=== PATIENT | male | born 1950 | race Caucasian/White ===

== ENCOUNTER 2019-09-23 09:18 | Inpatient (IN) | payer MEDICAID, OTHER ==
--- NOTE | 2019-09-23 10:11 | RAD REPORT ---
EXAM DESCRIPTION: RAD - Chest Single View - 09/23/2019 9:55 am CLINICAL HISTORY: CHEST PAIN COMPARISON: None TECHNIQUE: AP portable chest image was obtained 09/23/2019 9:55 am . FINDINGS: No failure or volume overload identified. No focal consolidation identifiable. A 10 mm nod ule lateral right midlung field is relatively dense and is probably a calcified granuloma. Bilateral nipple shadows seen in the lower lung mendez. Heart and vasculature are normal. No measurable pleural effusion and no pneumothorax. No acute bony abnormality seen. No acute aortic findings suspected. IMPRESSION: No failure, infiltrate or acute cardiopulmonary finding identified. The 10 millimeter nodule in the lateral right mid chest appears dense and is probably a calcified gra nuloma. This can be monitored on follow-up imaging in 6 months if patient has no known outside imagin g.
[2019-09-23] MEDS ORDERED: NA CHLORIDE 0.9% 500 ML ONE (11:21)
[2019-09-23] MEDS ORDERED: Magnesium Sulfate 2gm IVPB 2 G/50 ML BAG IV ONE (11:21)
[2019-09-23] MEDS ORDERED: AMIODARONE HCL 150 MG/3 ML INJ IV ONE (11:25)
[2019-09-23] MEDS ORDERED: D5W 100 ML IV ONE (11:25)
[2019-09-23] MEDS ORDERED: FENTANYL CITR 100 MCG/2 ML ONE (11:41)
[2019-09-23] MEDS ORDERED: MIDAZOLAM HCL 2 MG/2 ML INJ ONE (11:41)
[2019-09-23] MEDS ORDERED: ATROPINE SULF 1 MG/10 ML SYR IV ONE (11:42)
[2019-09-23] MEDS ORDERED: NA CHLORIDE 0.9% 100 ML IV ONE (11:42)
[2019-09-23] MEDS ORDERED: NITROGLYCERIN 0.4 MG/TAB SL ONE (11:45)
--- NOTE | 2019-09-23 11:57 | EDPHYS ---
Physician Documentation [facility] Name: Mushtaq Alba Age: 68 yrs Sex: Male : 1950 Arrival Date: 09/23/2019 Time: 09:23 Bed 4 Private MD: ED Physician Allan Angel HPI: 09/22 09:24 This 68 yrs old Male presents to ER via Unassigned with complaints of Chest ps1 Pain. 09:24 The patient or guardian reports chest pain that is located primarily in the anterior ps1 chest wall, left. Onset: yesterday. The pain does not radiate. Associated signs and symptoms: The patient has no apparent associated signs or symptoms. The chest pain is described as a pressure. Modifying factors: The symptoms are alleviated by ASA, 325mg. Engaged in heavy lifting yesterday. Dr. Remberto finnegan, no recent stress or RHC. History of 1 stent in heart and one in leg. . Historical: - Allergies: : No Known Allergies; hb - Home Meds: : Nitrostat SL [Active]; hb - PMHx: : CAD; hb - PSHx: :27 Heart stents; hb - Immunization history:: Adult Immunizations up to date. - Social history:: Smoking status: Patient denies any tobacco usage or history of. ROS: 09:25 Constitutional: Negative for fever, chills, and weight loss, Eyes: Negative for injury, ps1 pain, redness, and discharge, Respiratory: Negative for shortness of breath, cough, wheezing, and pleuritic chest pain, Abdomen/GI: Negative for abdominal pain, nausea, vomiting, diarrhea, and constipation, MS/Extremity: Negative for injury and deformity, Skin: Negative for injury, rash, and discoloration, Neuro: Negative for headache, weakness, numbness, tingling, and seizure. 09:25 Cardiovascular: Positive for chest pain. Exam: 09:25 Constitutional: This is a well developed, well nourished patient who is awake, alert, ps1 and in no acute distress. Head/Face: Normocephalic, atraumatic. Chest/axilla: Normal chest wall appearance and motion. Nontender with no deformity. No lesions are appreciated. Cardiovascular: Regular rate and rhythm. No gallops, murmurs, or rubs. Normal PMI, no JVD. No pulse deficits. Respiratory: Lungs have equal breath sounds bilaterally, clear to auscultation and percussion. No rales, rhonchi or wheezes noted. No increased work of breathing, no retractions or nasal flaring. Abdomen/GI: Soft, non-tender, with normal bowel sounds. No distension or tympany. No guarding or rebound. No evidence of tenderness throughout. MS/ Extremity: Pulses equal, no cyanosis. Neurovascular intact. Full, normal range of motion. Neuro: Awake and alert, GCS 15, oriented to person, place, time, and situation. Cranial nerves II-XII grossly intact. Sensory grossly intact. Vital Signs: 09:23 BP 106 / 72; Pulse 59; Resp 18; Temp 98.1; Pulse Ox 99% on R/A; Weight 63.96 kg; Height hb 5 ft. 7 in. (170.18 cm); Pain 0/10; 10:29 BP 124 / 65; Pulse 58; Resp 14; Pulse Ox 95% ; bp 11:00 BP 84 / 64; Pulse 74; Resp 18; Pulse Ox 88% ; bp 11:45 BP 126 / 70; Pulse 64; Resp 21; Pulse Ox 92% ; bp 09:23 Body Mass Index 22.08 (63.96 kg, 170.18 cm) hb MDM: 09:27 Patient medically screened. ps1 11:38 ED course: Notified that patient was having chest pain. His blood pressure dropped and ps1 then had ST elevations noticed on monitor. He then had Non sustained v tach with changes cw wellens in V2 V3. ST elevations in inferolateral leads. Gave amiodarone / mag and called interventional cardiology ( Ms. Aquino spoke with them while I was managing patient in room) [employer] conservation laborer activated. Repeat EKG demonstrated ST elevations in inferolateral leads. . 11:57 Differential diagnosis: abnormal EKG, acute myocardial infarction, pericarditis, ps1 unstable angina. Data reviewed: vital signs, nurses notes, and as a result, I will admit patient. Counseling: I had a detailed discussion with the patient and/or guardian regarding: the historical points, exam findings, and any diagnostic results supporting the discharge/admit diagnosis, the need for further work-up and treatment in the hospital. 09/22 09:24 Order name: CBC with Diff ps1 09/22 09:24 Order name: Magnesium ps1 09/22 09:24 Order name: NT PRO-BNP ps1 09/22 09:24 Order name: Troponin (emerg Dept Use Only) ps1 09/22 09:24 Order name: XRAY Chest (1 view); Complete Time: 10:59 ps1 09/22 09:24 Order name: CMP ps1 09/22 09:24 Order name: EKG; Complete Time: 09:25 ps1 09/22 09:24 Order name: Cardiac monitoring; Complete Time: 09:32 ps1 09/22 09:24 Order name: EKG - Nurse/Tech; Complete Time: 09:32 ps1 09/22 09:24 Order name: IV Saline Lock; Complete Time: 10:08 ps1 09/22 09:24 Order name: Labs collected and sent; Complete Time: 10:08 ps1 09/22 09:24 Order name: O2 Per Protocol; Complete Time: 09:32 ps1 09/22 09:24 Order name: O2 Sat Monitoring; Complete Time: 09:32 ps1 EC:37 Rate is 55 beats/min. Rhythm is regular. QRS [place] is Normal. IA interval is normal. QRS ps1 interval is normal. QT interval is normal. No Q waves. T waves are Normal. No ST changes noted. Clinical impression: Sinus bradycardia. Interpreted by me. Administered Medications: 08:53 Drug: amiodarone 900 mg, D5W 500 ml Route: IVPB; Rate: 1 mg/min; Site: left hand; hb 11:00 Drug: NS 0.9% 500 ml Route: IV; Rate: 1 bolus; Site: left wrist; bp 11:21 Drug: amiodarone 150 mg Volume: 100 ml; Route: IVPB; Infused Over: 10 mins; Site: left iw hand; 11:50 Not Given (Hemodynamic Parameters): Nitroglycerin 0.4 mg Sublingual once; every five bp minute if needed x3 Disposition: 09/23/19 11:56 Hospitalization ordered by Mitchell Osborne for Inpatient Admission. Preliminary diagnosis are Other chest pain, Abnormal electrocardiogram [ECG] [EKG], STEMI. - Bed requested for Ibm Bpm Architect. - Status is Inpatient Admission. bp - Condition is Serious. - Problem is new. - Symptoms have improved. Signatures: Dispatcher [employer] Erika Alfred FNP-C TEAM LEAD-Csnw Tamela Lindsey RN RN iw Zo Goodman, RN RN hb Abad Reyes, RN BABATUNDE bp Allan Angel MD MD ps1 Corrections: (The following items were deleted from the chart) 11:44 09:24 Engaged in heavy lifting yesterday. Dr. Remberto finnegan, no recent stress or RHC. . ps1 ps1 11:47 11:38 ED course: Notified that patient was having chest pain. His blood pressure ps1 dropped and then had ST elevations noticed on monitor. He then had Non sustained v tach with changes cw wellens in V2 V3. ST elevations in inferolateral leads. Gave amiodarone / mag and called interventional cardiology ( Ms. Aquino spoke with them while I was managing patient in room) [employer] conservation laborer activated. . ps1 11:56 11:56 Hospitalization Ordered by Mitchell Osborne MD for Inpatient Admission. Preliminary ps1 diagnosis is Other chest pain; Abnormal electrocardiogram [ECG] [EKG]. Bed requested for Ibm Bpm Architect. Status is Inpatient Admission. Condition is Serious. Problem is new. Symptoms have improved. ps1 12:00 11:56 09/23/2019 11:56 Hospitalization Ordered by Mitchell Osborne MD for Inpatient hb Admission. Preliminary diagnosis is Other chest pain; Abnormal electrocardiogram [ECG] [EKG]; STEMI. Bed requested for Ibm Bpm Architect. Status is Inpatient Admission. Condition is Serious. Problem is new. Symptoms have improved. ps1 12:05 12:00 09/23/2019 11:56 Hospitalization Ordered by Mitchell Osborne MD for Inpatient bp Admission. Preliminary diagnosis is Other chest pain; Abnormal electrocardiogram [ECG] [EKG]; STEMI. Bed requested for Ibm Bpm Architect. Status is Inpatient Admission. Condition is Serious. Problem is new. Symptoms have improved. hb
--- NOTE | 2019-09-23 11:57 | ER ---
Nurse's Notes [facility] Name: Mushtaq Alba Age: 68 yrs Sex: Male : 1950 Arrival Date: 09/23/2019 Time: 09:23 Bed 4 Private MD: Diagnosis: Other chest pain;Abnormal electrocardiogram [ECG] [EKG];STEMI Presentation: 09/22 09:23 Chief complaint: EMS states: Substernal chest pressure that radiated to left arm and hb mild SOB since last night. Reports working out in the heat yesterday. Pain subsided after ASA 324mg administered AIRPLANE PILOT HELPER. BP 126/65, HR 80s, SpO2 97% on RA. Hx of CAD, cardiac stents. Coronavirus screen: Proceed with normal triage. Ebola Screen: No symptoms or risks identified at this time. Initial Sepsis Screen: Does the patient meet any 2 criteria? No. Patient's initial sepsis screen is negative. Does the patient have a suspected source of infection? No. Patient's initial sepsis screen is negative. Risk Assessment: Do you want to hurt yourself or someone else? Patient reports no desire to harm self or others. Onset of symptoms was September 22, 2019. 09:23 Method Of Arrival: EMS: [facility] 09:23 Acuity: COLLEEN 3 hb Triage Assessment: :27 General: Appears in no apparent distress. Behavior is calm, cooperative. Pain: Denies hb pain. EENT: No signs and/or symptoms were reported regarding the EENT system. Neuro: Level of Consciousness is awake, alert, obeys commands, Oriented to person, place, time, situation. Cardiovascular: Capillary refill < 3 seconds Patient's skin is warm and dry. Rhythm is regular. Respiratory: Respiratory effort is even, unlabored, Respiratory pattern is regular, symmetrical. GI: No signs and/or symptoms were reported involving the gastrointestinal system. : No signs and/or symptoms were reported regarding the genitourinary system. Derm: Skin is pink, warm \T\ dry. Musculoskeletal: No signs and/or symptoms reported regarding the musculoskeletal system. Historical: - Allergies: : No Known Allergies; hb - Home Meds: : Nitrostat SL [Active]; hb - PMHx: : CAD; hb - PSHx: :27 Heart stents; hb - Immunization history:: Adult Immunizations up to date. - Social history:: Smoking status: Patient denies any tobacco usage or history of. Screenin:28 Abuse screen: Denies threats or abuse. Denies injuries from another. Nutritional hb screening: No deficits noted. Tuberculosis screening: No symptoms or risk factors identified. Fall Risk None identified. Assessment: 09:28 General: see triage. hb 10:28 Reassessment: PIV PLACED, UNABLE TO OBTAIN BLOOD SPECIMEN. PHLEBOTOMY CONTACTED FOR bp BLOOD DRAW. 10:39 Reassessment: PHLEBOTOMY AT B/S. bp 11:00 Reassessment: PT C/O ACUTE INCREASE IN CHEST PAIN. MD AT /. STEMI PATTERN NOTED ON bp EKG. 11:20 Reassessment: PROGRAM EVALUATOR ACTIVATED BY DR ÁLVAREZ. TRANSPORT PENDING FOR CARDIAC CATH. MX bp ATTEMPTS BY MD TO OBTAIN EJ ACCESS UNSUCCESSFUL. 11:45 Reassessment: PROGRAM EVALUATOR AT / FOR TRANSPORT. bp Vital Signs: 09:23 BP 106 / 72; Pulse 59; Resp 18; Temp 98.1; Pulse Ox 99% on R/A; Weight 63.96 kg; Height hb 5 ft. 7 in. (170.18 cm); Pain 0/10; 10:29 BP 124 / 65; Pulse 58; Resp 14; Pulse Ox 95% ; bp 11:00 BP 84 / 64; Pulse 74; Resp 18; Pulse Ox 88% ; bp 11:45 BP 126 / 70; Pulse 64; Resp 21; Pulse Ox 92% ; bp 09:23 Body Mass Index 22.08 (63.96 kg, 170.18 cm) hb ED Course: :23 Patient arrived in ED. hb 09:23 Allan Angel MD is Attending Physician. ps1 09:26 Triage completed. hb 09:27 Arm band placed on. hb 09:28 Patient has correct armband on for positive identification. Placed in gown. Bed in low hb position. Call light in reach. Side rails up X 1. electronic device monitor on. Pulse ox on. NIBP on. 09:28 Patient maintains SpO2 saturation greater than 95% on room air. hb 09:29 Zo Goodman, RN is Primary Nurse. hb 09:55 XRAY Chest (1 view) In Process Unspecified. EDMS 10:29 Inserted saline lock: 24 gauge in left hand, using aseptic technique. bp 11:30 Inserted saline lock: 18 gauge in right upper arm, using aseptic technique. bp 11:55 Mitchell Osborne MD is Hospitalizing Provider. ps1 Administered Medications: 08:53 Drug: amiodarone 900 mg, D5W 500 ml Route: IVPB; Rate: 1 mg/min; Site: left hand; hb 11:00 Drug: NS 0.9% 500 ml Route: IV; Rate: 1 bolus; Site: left wrist; bp 11:21 Drug: amiodarone 150 mg Volume: 100 ml; Route: IVPB; Infused Over: 10 mins; Site: left iw hand; 11:50 Not Given (Hemodynamic Parameters): Nitroglycerin 0.4 mg Sublingual once; every five bp minute if needed x3 Outcome: 11:56 Decision to Hospitalize by Provider. ps1 12:00 Patient left the ED. hb 12:05 Patient left the ED. bp Signatures: Dispatcher [employer] Tamela Sandra RN RN Zo Goodman RN RN Abad Reyes RN RN bp Allan Angel MD MD ps1
[2019-09-23] MEDS ORDERED: HEPA 1000U/500MLS 1,000 UNIT/500 ML BAG IV ONE (12:07)
[2019-09-23] MEDS ORDERED: NITROGLYCERIN/D5W 50 MG/250 ML BTL IV ONE (12:27)
[2019-09-23] MEDS ORDERED: NITROPRUSSIDE 50 MG VIAL IV ONE (12:39)
[2019-09-23] MEDS ORDERED: D5W 250 ML IV ONE (12:39)
[2019-09-23] MEDS ORDERED: CLOPIDOGREL 75 MG TABLET ONE (12:59)
[2019-09-23] MEDS ORDERED: NA CHLORIDE 0.9% 1,000 ML ONE (13:07)
[2019-09-23] MEDS ORDERED: ONDANSETRON 4 MG/2 ML VIAL ONE (13:21)
[2019-09-23] MEDS ORDERED: ACETAMINOPHEN 325 MG TABLET PO PRN (14:00)
[2019-09-23] MEDS ORDERED: ONDANSETRON 4 MG/2 ML VIAL IV PRN (14:00)
[2019-09-23] MEDS ORDERED: HEPARIN/D5W 25,000 UNIT/500 ML BAG IV PRN (15:00)
[2019-09-23 15:42] LABS: Absolute Lymphocytes (CBC) 1.9 K/uL (0.7-4.9); Basophils % 0.7 % (0-1.3); Hematocrit 39.3 % (39.6-49.0); Lymphocytes % 24.6 % (15.3-44.8); MPV 8.5 fL (7.6-11.3); RBC Red Blood Cell Count 4.21 M/uL (4.33-5.43)
[2019-09-23 16:06] LABS: Protime INR 1.18
[2019-09-23 16:07] LABS: Albumin 3.1 g/dL (3.4-5.0); Bilirubin Total 0.2 mg/dL (0.2-1.0); Magnesium 2.9 mg/dL (1.8-2.4); Potassium 4.3 mmol/L (3.5-5.1); Protein, Total 6.5 g/dL (6.4-8.2); Troponin (Emerg Dept Use Only) 0.11 ng/mL (0.0-0.045)
[2019-09-23] MEDS: NITROGLYCERIN 0.4 MG/TAB SL PRN (18:49)
[2019-09-23 18:57] LABS: Blood Morphology Comment NOT SEEN (NOT SEEN); Platelet Estimate ADEQ; Urine White Blood Cell Casts OK
[2019-09-23] MEDS ORDERED: NITROGLYCERIN/D5W 50 MG/250 ML BTL IV PRN (19:16)
[2019-09-23] MEDS: ATORVASTATIN 80 MG TAB PO SCH (21:09)
[2019-09-23] MEDS: NA CHLORIDE 0.9% 1,000 ML IV SCH (22:38)
--- NOTE | 2019-09-23 22:49 | CON ---
Date of Consultation: 09/23/2019 Patient was admitted on 09/23/2019. The patient was seen on 09/23/2019. Reason For Consultation: Acute inferior [place]. History Of Present Illness: Mr. Alba is a 68-year-old white male with history of coronary artery di sease. He is status post LAD stent at some point. Apparently, has been having chest pain for approx imately 2 to 3 years and was in the process of having a workup when he came into the emergency room w ith an acute inferior [place]. He was taken to the labor relations consultant emergently and a heart catheterization reveal ed a very distal 90% stenosis in the LAD and in that area the LAD itself was about 1 mm in size. He had a normal circumflex, but the OM was about 1 mm in size as well. The LAD stent was patent. He coronado d multiple thrombi in the RCA that was treated with IV Nipride and nitroglycerin and patient's ST corinne vation and symptoms resolved. He was given Angiomax during the procedure. He was given aspirin, Deshaun vix, and heparin as well as nitroglycerin and was transferred to the ICU in stable condition. The de cision was to treat him medically. His distal LAD is too small to stent or angioplasty. Patient's past medical history includes CAD status post stents and at home the only medication he too k was Nitrostat as needed. Allergies: NONE. Review of Systems: Negative. Social History: Positive for tobacco. Family History: Noncontributory. Physical Examination: Vital Signs: When we first saw him, his pressure was 106/72 with a pulse of 60, respiratory rate of 18, temperature 98.1, pulse ox was 99% on room air. He was having short runs of VT and amiodarone dr roy was started. HEENT: Exam was negative. Neck: Supple with no bruit. Chest: Clear to auscultation and percussion. Cardiac: Exam revealed a regular rhythm and rate. No murmurs, gallops, or rubs. Abdomen: Benign. Extremities: Revealed no clubbing, cyanosis, or edema. Diagnostic Data: EKG showed acute inferior [place]. His creatinine was 1.22. His hemoglobin was 13.0. His troponin was 0.11. His BNP was . Chest x-ray was clear. Impression And Plan: 1.Status post acute inferior myocardial infarction with multiple thrombi in the RCA region, treated with IV nitroglycerin, Nipride, aspirin, Plavix, heparin and Angiomax. 2.Severe coronary artery disease in the LAD distally and OM blood vessels are very small there for i ntervention. Patent LAD stent proximally. We will continue his regimen right now with aspirin, Plav ix. I will keep him on a heparin drip and nitroglycerin as needed. I will stop his IV amiodarone si nce his EKG went back to normal and he is pain-free. We will continue to follow him. His other prob lems that are noticed during the catheterization that he has had a right common iliac artery stent wh ich appeared to be patent. ALONSO/KAREY Voice ID: [id number] Report ID: [id number]
--- NOTE | 2019-09-23 22:52 | OP ---
Date of Procedure: 09/23/2019 Surgeon: Mitchell Osborne MD Pathology Supervisor: Michele Flanagan. Procedure: Left heart catheterization, selective coronary arteriogram, intracoronary injection with nitroglycerin and Nipride, thrombolysis with Angiomax, heparin, aspirin, and Plavix. History Of Present Illness: Mr. Alba is a 68-year-old white male with history of CAD, status post L AD stent, peripheral arterial disease status post right common iliac artery stent, came in with an ac lizeth inferior [place] to the energy systems laboratory director. The only medicine he was taking at home was nitroglycerin p.r.n. Katie bourne had an acute inferior [place], was taken straight from the emergency room to the energy systems laboratory director. Catheterizat ion was planned. He was prepped and draped in the routine sterile fashion. He was having short runs of ventricular tachycardia. He was on IV amiodarone. He was normotensive with persistent chest reese n 6/10. He was prepped and draped in routine sterile fashion. He was given Versed and fentanyl for sedation. A 6-Polish sheath was introduced in the right common femoral artery successfully after 10 mL of Xylocaine. JL4 catheter was introduced into the left main. Injection there showed a patent LA D stent, a very small distal LAD with 90% stenosis. The blood vessel distally was less than 1 mm in size. The circumflex itself was normal. The OM-1 was severely diseased, was about 1 mm in size as w ell. Following that, a JR4 catheter was used to inject the right coronary artery. He was found to h ave multiple thrombi in the RV branch, proximal RCA, and distal RCA. There were no obvious stenosis. He was given intracoronary nitroglycerin, intracoronary Nipride, Angiomax, aspirin, Plavix, and the n switched to heparin with excellent results of the RCA without any residual thrombus. His chest reese n resolved. His EKG changes resolved. The ventricular tachycardia did not reoccur. There were no c omplications. Blood Loss: 5 mL. Anesthesia: Total conscious sedation was 1 hour. Final Diagnoses: Status post acute inferior myocardial infarction secondary to thrombus. Thrombolys is with IV nitroglycerin with intracoronary Nipride, aspirin, Plavix, Angiomax, heparin. Ventricular tachycardia treated with IV amiodarone. The patient will go to the ICU on heparin drip, nitroglycerin drip, amiodarone drip. We will continu e to follow him in the ICU. NB/MODL Voice ID: [id number] Report ID: [id number]
[2019-09-24] MEDS: NITROGLYCERIN 0.4 MG/TAB SL PRN (04:00)
[2019-09-24 05:10] LABS: Absolute Lymphocytes (CBC) 1.8 K/uL (0.7-4.9); Basophils % 0.5 % (0-1.3); Hematocrit 36.6 % (39.6-49.0); Lymphocytes % 18.8 % (15.3-44.8); RBC Red Blood Cell Count 3.99 M/uL (4.33-5.43)
[2019-09-24] MEDS: NA CHLORIDE 0.9% 1,000 ML IV SCH ×3 (05:28→20:58)
[2019-09-24 05:31] LABS: Potassium 4.1 mmol/L (3.5-5.1)
[2019-09-24] MEDS ORDERED: TRAMADOL HCL 50 MG TAB PO PRN (08:04)
[2019-09-24] MEDS: HYDROCODONE/APAP 7.5/325 MG TAB PO PRN ×3 (08:23→21:01)
[2019-09-24] MEDS: CLOPIDOGREL 75 MG TABLET PO SCH (08:24)
[2019-09-24] MEDS: ASPIRIN 81 MG CHEWABLE TABLET PO SCH (08:24)
--- NOTE | 2019-09-24 08:52 | PN ---
Date of Progress Note: 09/24/2019 Mr. Alba came in yesterday with an acute inferior [place]. Heart catheterization emergently showed throm bus in the right coronary artery proximally, distally, and in the RV branch. He was treated with IV Nipride, intracoronary nitroglycerin. He was also given Plavix, aspirin, placed on heparin. He was having ventricular tachycardia and was placed on amiodarone. Overnight, he has had 1 episode of ches t pain with ST elevation that resolved with IV nitroglycerin. He has not had any further ventricular tachycardia and his amiodarone was stopped. This morning, his vital signs are stable. He is afebri le. He is in sinus rhythm. He has no complaints. He remains on heparin, nitroglycerin, aspirin Deshaun vix, Lipitor, and I would continue those regimen at least 1 more day. We will get an echocardiogram on him today. ALONSO/KAREY Voice ID: [id number] Report ID: [id number]
--- NOTE | 2019-09-24 11:07 | P.CNS ---
Date of Consult: 09/24/19 Reason for Consult: Medical management Requesting Physician: Mitchell Osborne Chief Complaint: STEMI History of Present Illness: 68-year-old gentleman with a history of coronary artery disease status post coronary stent presented to the ED with a complaint of chest pain. Patient was found to have a STEMI. He underwent cardiac catheterization and noted to have a clot in the right coronary artery. This was treated with intracoronary anticoagulants. Patient was then transferred to the intensive care unit on heparin drip and for close monitoring. It appears he also developed ventricular tachycardia which was treated with amiodarone. Patient had intermittent chest pain and was put on nitroglycerin drip. He had 1 episode of chest pain last night. This morning patient appeared to be in stable condition. Allergies No Known Allergies Allergy (Unverified 09/23/19 11:16) Home Medications: Atorvastatin Calcium [Lipitor] 80 mg PO BEDTIME 09/23/19 Clopidogrel Bisulfate [Plavix*] 1 tab PO DAILY 09/23/19 Isosorbide Mononitrate [Isosorbide Mononitrate ER] 120 mg PO DAILY 09/23/19 Metoprolol Succinate [Toprol Xl] 25 mg PO DAILY 09/23/19 Nitroglycerin [Nitrostat] 0.4 mg SL 09/23/19 Nortriptyline HCl [Pamelor] 50 mg PO BEDTIME 09/23/19 - Past Medical/Surgical History Diabetic: No -: HTN -: Blood clots -: DVT -: CAD -: Appendectomy -: spinal Sx. - Social History Alcohol use: No CD- Drugs: Yes Caffeine use: Yes Place of Residence: Home Review of Systems Other: Except as documented, all other systems reviewed and negative. Physical Examination Temp Pulse Resp BP Pulse Ox 98.1 F 80 14 138/68 98 09/23/19 15:30 09/24/19 07:00 09/24/19 08:23 09/24/19 07:00 09/24/19 08:23 General: Alert, In no apparent distress, Oriented x3 HEENT: Mucous membr. moist/pink Neck: Supple, JVD not distended Respiratory: Clear to auscultation bilaterally, Normal air movement Cardiovascular: No edema, Regular rate/rhythm, Normal S1 S2 Capillary refill: <2 Seconds Gastrointestinal: Normal bowel sounds, Soft and benign, Non-distended, No tenderness Musculoskeletal: No erythema Integumentary: No rashes Neurological: Normal speech, Normal strength at 5/5 x4 extr - Problems (1) CAD (coronary artery disease) Current Visit: Yes Status: Acute (2) STEMI (ST elevation myocardial infarction) Current Visit: Yes Status: Acute (3) Ventricular tachycardia Current Visit: Yes Status: Acute (4) Angina at rest Current Visit: Yes Status: Acute Conclusions/Impression: Continue heparin drip and monitor PTT. Nitroglycerin drip for recurrent chest pain. Patient also on amiodarone drip. Correct electrolytes. Hypercoagulable workup.
[2019-09-24] MEDS: ATORVASTATIN 80 MG TAB PO SCH (20:59)
[2019-09-25] MEDS: NA CHLORIDE 0.9% 1,000 ML IV SCH (06:02)
[2019-09-25] MEDS: CLOPIDOGREL 75 MG TABLET PO SCH (07:27)
[2019-09-25] MEDS: HYDROCODONE/APAP 7.5/325 MG TAB PO PRN ×2 (07:27→21:52)
[2019-09-25] MEDS: ASPIRIN 81 MG CHEWABLE TABLET PO SCH (07:27)
--- NOTE | 2019-09-25 08:10 | ECHO ---
HEIGHT: 5 ft 7 in WEIGHT: 139 lb 1 oz DATE OF STUDY: 09/24/[address]: Mitchell Osborne MD 2-DIMENSIONAL: YES M.MODE: YES DOPPLER: YES COLOR FLOW: YES TDS: YES PORTABLE: NO DEFINITY: NO BUBBLE STUDY: NO DIAGNOSIS: CORONARY ARTERY DISEASE CARDIAC HISTORY: CATHERIZATION: SURGERY: PROSTHETIC VALVE: PACEMAKER: MEASUREMENTS (cm) DIASTOLIC (NORMALS) SYSTOLIC (NORMALS) IVSd 1.0 (0.6-1.2) LA Diam 3.8 (1.9-4.0) LVEF 61% LVIDd 4.6 (3.5-5.7) LVIDs 3.1 (2.0-3.5) %FS 32% LVPWd 1.1 (0.6-1.2) Ao Diam 2.8 (2.0-3.7) 2 DIMENSIONAL ASSESSMENT: RIGHT ATRIUM: NORMAL LEFT ATRIUM: NORMAL RIGHT VENTRICLE: NORMAL LEFT VENTRICLE: NORMAL TRICUSPID VALVE: NORMAL MITRAL VALVE: NORMAL PULMONIC VALVE: NORMAL AORTIC VALVE: NORMAL PERICARDIAL EFFUSION: NONE AORTIC ROOT: NORMAL LEFT VENTRICULAR WALL MOTION: NORMAL DOPPLER/COLOR FLOW: NORMLA COMMENTS: NORMAL 2D ECHOCARDIOGRAM WITH DOPPLER. NO WALL MOTION ABNORMALITY. NO EFFUSION. TECHNOLOGIST: Heike CLOUD
[2019-09-25] MEDS ORDERED: MORPHINE 2 MG/ML SYR IV PRN (09:31)
[2019-09-25] MEDS: AMLODIPINE 5 MG TAB PO SCH (12:11)
--- NOTE | 2019-09-25 17:14 | P.PN ---
Subjective Date of Service: 09/25/19 Primary Care Provider: none Chief Complaint: STEMI Subjective: Improving, Doing well Physical Examination - Vital Signs Temperature: 98.5 F Blood Pressure: 85/62 Pulse: 70 Respirations: 17 Pulse Ox (%): 100 - Physical Exam General: Alert HEENT: Atraumatic Neck: Supple Respiratory: Clear to auscultation bilaterally, Normal air movement Cardiovascular: Normal pulses, Regular rate/rhythm Gastrointestinal: Normal bowel sounds, Soft and benign Neurological: Normal speech, Normal strength at 5/5 x4 extr, Normal tone, Normal affect - Studies Medications List Reviewed: Yes Assessment & Plan Discharge Plan: Home Plan to discharge in: 24 Hours Physician Review Additional Text: Impression: Chest pain secondary to post acute inferior MT secondary to thrombus with history of CAD, status post LAD stent Hypertension Peripheral vascular disease with prior right common iliac artery stent Plan: Case discussed at length with cardiology. Will continue aspirin, Plavix, Lipitor, and Norvasc. Will stop heparin drip and nitro drip. If stable can be transferred to the floor. Patient was re-evaluated later in the day. Patient stable patient will go to the floor. Possible discharge as early as tomorrow. Time Spent Managing Pts Care (In Minutes): 55
[2019-09-25] MEDS: ATORVASTATIN 80 MG TAB PO SCH (20:33)
[2019-09-25] MEDS: HEPARIN 5000 UNIT/ML 1 ML VIAL SQ SCH (20:33)
[2019-09-25] MEDS: NORTRIPTYLINE HCL 25 MG CAP PO SCH (20:33)
[2019-09-25] MEDS ORDERED: NORTRIPTYLINE HCL 50 MG PO SCH (21:00)
[2019-09-25] MEDS: NITROGLYCERIN 0.4 MG/TAB SL PRN (21:52)
[2019-09-26 06:09] LABS: Basophils % 0.6 % (0-1.3); Hematocrit 37.9 % (39.6-49.0); Lymphocytes % 32.3 % (15.3-44.8); MPV 8.2 fL (7.6-11.3); RBC Red Blood Cell Count 4.14 M/uL (4.33-5.43)
[2019-09-26 06:32] VITALS: BMI 21.2
[2019-09-26 06:43] LABS: Potassium 4.3 mmol/L (3.5-5.1)
[2019-09-26] MEDS: AMLODIPINE 5 MG TAB PO SCH (08:40)
[2019-09-26] MEDS: ASPIRIN 81 MG CHEWABLE TABLET PO SCH (08:40)
[2019-09-26] MEDS: CLOPIDOGREL 75 MG TABLET PO SCH (08:40)
[2019-09-26] MEDS: HEPARIN 5000 UNIT/ML 1 ML VIAL SQ SCH ×2 (08:41→22:19)
--- NOTE | 2019-09-26 11:17 | P.DS ---
Admission Date: 09/23/19 Discharge Date: 09/26/19 Primary Care Provider: none Disposition: ROUTINE DISCHARGE Discharge Condition: GOOD Reason for Admission: STEMI Consultations: Cardiology-Dr. Osborne Procedures: ECHO: EF 61% LEFT VENTRICULAR WALL MOTION: NORMAL DOPPLER/COLOR FLOW: NORMLA COMMENTS: NORMAL 2D ECHOCARDIOGRAM WITH DOPPLER. NO WALL MOTION ABNORMALITY. NO EFFUSION. Heart catherization: Date of Procedure: 09/23/2019 Surgeon: Mitchell Osborne MD [place]: Michele Flanagan. Procedure: Injection there showed a patent LAD stent, a very small distal LAD with 90% stenosis. The blood vessel distally was less than 1 mm in size. The circumflex itself was normal. The OM-1 was severely diseased, was about 1 mm in size as well. Following that, a JR4 catheter was used to inject the right coronary artery. He was found to have multiple thrombi in the RV branch, proximal RCA, and distal RCA. There were no obvious stenosis. He was given intracoronary nitroglycerin, intracoronary Nipride, Angiomax, aspirin, Plavix, and then switched to heparin with excellent results of the RCA without any residual thrombus. His chest pain resolved. His EKG changes resolved. The ventricular tachycardia did not reoccur. There were no complications. Blood Loss: 5 mL. Anesthesia: Total conscious sedation was 1 hour. Final Diagnoses: Status post acute inferior myocardial infarction secondary to thrombus. Thrombolysis with IV nitroglycerin with intracoronary Nipride, aspirin, Plavix, Angiomax, heparin. Ventricular tachycardia treated with IV amiodarone. The patient will go to the ICU on heparin drip, nitroglycerin drip, amiodarone drip. We will continue to follow him in the ICU. Medical Problem List: Chest pain secondary to post acute inferior TN/ventricular tachycardia status post heart catheterization showing patent LAD stent, a very small distal LAD with 90% stenosis, normal circumflex, OM1 severely diseased, and multiple thrombi in the RV branch, proximal RCA and distal RCA requiring intracoronary nitro, intracoronary nipride, Angiomax, aspirin, Plavix then heparin with good results of RCA without residual thrombus Hypertension Hyperlipidemia Peripheral vascular disease with prior right common iliac artery stent Insomnia Brief History of Present Illness: 68-year-old male with history of Coronary artery disease. Patient presented with chest pain. Patient found to have acute inferior TN. Patient was taking to the heart catheterization lab for emergent intervention. Hospital Course: Patient presented with chest pain secondary to Acute Coronary Syndrome/acute inferior TN/ventricular tachycardia. The patient was emergently seen by Cardiology and had emergent heart catheterization. Heart catheterization performed showed patent LAD stent, a very small distal LAD with 90% stenosis, normal circumflex, OM1 severely diseased, and multiple thrombi in the RV branch, proximal RCA and distal RCA requiring intracoronary nitro, intracoronary nipride, Angiomax, aspirin, Plavix then heparin with good results of RCA without residual thrombus. The patient has significantly improved. Patient was monitored in ICU. Case discussed in detail with cardiology. At discharge p atient without chest pain. At discharge patient will continue with aspirin 81 mg daily, Plavix 75 mg daily, Norvasc 5 mg daily, Lipitor 80 mg daily and nitroglycerin as needed for chest pain. At discharge patient will need a follow up with cardiology in 1 week to follow up this hospitalization. Patient also with underlying hypertension, hyperlipidemia, peripheral vascular disease with prior stent and insomnia. At discharge patient will continue with above medications along with Pamelor 50 mg at bedtime as needed. Patient will need to establish care with a local PCP to continue his care and follow up this hospitalization. Vital Signs/Physical Exam: Temp Pulse Resp BP Pulse Ox 97.8 F 84 18 129/89 96 09/26/19 08:00 09/26/19 09:00 09/26/19 09:00 09/26/19 09:00 09/26/19 08:00 General: Alert, In no apparent distress, Oriented x3, Cooperative HEENT: Atraumatic Neck: Supple Respiratory: Clear to auscultation bilaterally, Normal air movement Cardiovascular: Normal pulses, Regular rate/rhythm Gastrointestinal: Normal bowel sounds, Soft and benign, Non-distended, No masses, No rebound, No guarding Musculoskeletal: No erythema, No tenderness, No warmth Integumentary: No tenderness/swelling, No erythema, No warmth, No cyanosis Neurological: Normal speech, Normal strength at 5/5 x4 extr, Normal tone, Normal affect Laboratory Data at Discharge: WBC 6.1 K/uL (4.3-10.9) D 09/26/19 05:03 Hgb 12.8 g/dL (13.6-17.9) L 09/26/19 05:03 Hct 37.9 % (39.6-49.0) L 09/26/19 05:03 Plt Count 189 K/uL (152-406) 09/26/19 05:03 PT 13.9 SECONDS (9.5-12.5) H 09/23/19 15:04 INR 1.18 09/23/19 15:04 APTT Cancelled 09/25/19 10:00 Sodium 145 mmol/L (136-145) 09/26/19 05:03 Potassium 4.3 mmol/L (3.5-5.1) 09/26/19 05:03 BUN 13 mg/dL (7-18) 09/26/19 05:03 Creatinine 1.02 mg/dL (0.55-1.3) 09/26/19 05:03 Glucose 88 mg/dL (74-106) 09/26/19 05:03 Magnesium 2.0 mg/dL (1.8-2.4) D 09/26/19 05:03 Total Bilirubin 0.2 mg/dL (0.2-1.0) 09/23/19 15:15 AST 43 U/L (15-37) H 09/23/19 15:15 ALT 54 U/L (12-78) 09/23/19 15:15 Alkaline Phosphatase 92 U/L (45-117) 09/23/19 15:15 Triglycerides 66 mg/dL (<150) 09/24/19 04:40 Cholesterol 74 mg/dL (<200) 09/24/19 04:40 HDL Cholesterol 44 mg/dL (40-60) 09/24/19 04:40 Cholesterol/HDL Ratio 1.68 09/24/19 04:40 Home Medications: Nortriptyline HCl [Pamelor] 50 mg PO BEDTIME 09/23/19 Amlodipine [Norvasc*] 5 mg PO DAILY #30 tab 09/26/19 Aspirin Chewable [Aspirin Chewable*] 81 mg PO DAILY #90 tab.chew 09/26/19 Atorvastatin Calcium [Lipitor] 80 mg PO BEDTIME #30 tab 09/26/19 Clopidogrel Bisulfate [Plavix*] 75 mg PO DAILY #30 tablet 09/26/19 Nitroglycerin [Nitrostat*] 0.4 mg SL SEECOM #30 tab 09/26/19 New Medications: Aspirin Chewable [Aspirin Chewable*] 81 mg PO DAILY #90 tab.chew Atorvastatin Calcium [Lipitor] 80 mg PO BEDTIME #30 tab Nitroglycerin [Nitrostat*] 0.4 mg SL SEECOM #30 tab Amlodipine [Norvasc*] 5 mg PO DAILY #30 tab Clopidogrel Bisulfate [Plavix*] 75 mg PO DAILY #30 tablet Patient Discharge Instructions: 1. Recommend follow up with a PCP to establish care and follow up this hospitalization. 2. Patient presented with chest pain secondary to Acute Coronary Syndrome/acute inferior TN/ventricular tachycardia. The patient was emergently seen by Cardiology and had emergent heart catheterization. Heart catheterization performed showed patent LAD stent, a very small distal LAD with 90% stenosis, normal circumflex, OM1 severely diseased, and multiple thrombi in the RV branch, proximal RCA and distal RCA requiring intracoronary nitro, intracoronary nipride, Angiomax, aspirin, Plavix then heparin with good results of RCA without residual thrombus. The patient has significantly improved. Patient was monitored in ICU. Case discussed in detail with cardiology. At discharge patient without chest pain. At discharge patient will continue with aspirin 81 mg daily, Plavix 75 mg daily, Norvasc 5 mg daily, Lipitor 80 mg daily and nitroglycerin as needed for chest pain. At discharge patient will need a follow up with cardiology in 1 week to follow up this hospitalization. 3. Patient also with underlying hypertension, hyperlipidemia, peripheral vascular disease with prior stent and insomnia. At discharge patient will continue with above medications along with Pamelor 50 mg at bedtime as needed. 4. Patient will need to establish care with a local PCP to continue his care and follow up this hospitalization. Diet: AHA Activity: Ad albaro Time spent managing pt's care (in minutes): 55
[2019-09-26] MEDS: ATORVASTATIN 80 MG TAB PO SCH (22:18)
[2019-09-26] MEDS: NORTRIPTYLINE HCL 25 MG CAP PO SCH (22:19)
[2019-09-26] MEDS: NITROGLYCERIN 0.4 MG/TAB SL PRN (22:24)
[2019-09-27] MEDS: HYDROCODONE/APAP 7.5/325 MG TAB PO PRN (01:39)
[2019-09-27 06:06] LABS: Basophils % 0.5 % (0-1.3); Hematocrit 38.3 % (39.6-49.0); Lymphocytes % 31.3 % (15.3-44.8); MPV 8.2 fL (7.6-11.3)
[2019-09-27 06:29] LABS: Potassium 4.2 mmol/L (3.5-5.1)
[2019-09-27 09:38] VITALS: TEMP 97
[2019-09-27] MEDS: HEPARIN 5000 UNIT/ML 1 ML VIAL SQ SCH (10:22)
[2019-09-27] MEDS: CLOPIDOGREL 75 MG TABLET PO SCH (10:22)
[2019-09-27] MEDS: AMLODIPINE 5 MG TAB PO SCH (10:22)
[2019-09-27] MEDS: ASPIRIN 81 MG CHEWABLE TABLET PO SCH (10:22)
[2019-09-27 10:52] VITALS: O2SAT 96
[2019-09-27 14:10] VITALS: BP 121/62
[2019-09-28 10:17] LABS: Protein C Antigen 81 % (70-140)
--- NOTE | 2019-09-29 16:19 | PN ---
Date of Progress Note: 09/25/2019 Mr. Alba had came in with an acute anterior [place] secondary to RCA thrombus. He was treated with aspir in, Nipride, nitroglycerin, heparin, Angiomax. He remained on heparin for 48 hours. He has not had any further symptoms or EKG changes. Echocardiogram which was done was normal without any wall motio n abnormalities. I think Mr. Alba can safely go home, but he needs to be on aspirin, he needs to be on Plavix, and needs to be on a calcium channel lien. He needs to be on a statin, and I will see him in the office in the next 2 weeks. I would like to add that during his catheterization, he was found to have a patent LAD stent proximally, but very small distal LAD and very small OM. In the dis jessica LAD, which was which was about a 1 mm vessel, there was about a 90% stenosis, but not amenable fo r angioplasty or intervention. ALONSO/KAREY Voice ID: [id number] Report ID: [id number]
== END 2019-09-27 13:10 | disposition home or self-care (01) | DRG 281 ==
LOC: ER 09:18 → 3RD-ICU 13:37 → 2ND 09-26 11:14
PROVIDERS: ATTEND Family Medicine
PROC: 4A023N7 Measurement of Cardiac Sampling and Pressure, Left Heart, Percutaneous Approach (ICD-10-PCS; principal; 2019-09-23)
PROC: B201YZZ Plain Radiography of Multiple Coronary Arteries using Other Contrast (ICD-10-PCS; 2019-09-23)
PROC: B205YZZ Plain Radiography of Left Heart using Other Contrast (ICD-10-PCS; 2019-09-23)
PROC: 3E07317 Introduction of Other Thrombolytic into Coronary Artery, Percutaneous Approach (ICD-10-PCS; 2019-09-23)
DX: I21.19 ST elevation (STEMI) myocardial infarction involving other coronary artery of inferior wall (principal); I47.2 Ventricular tachycardia; I25.119 Atherosclerotic heart disease of native coronary artery with unspecified angina pectoris; I10 Essential (primary) hypertension; I73.89 Other specified peripheral vascular diseases; E78.5 Hyperlipidemia, unspecified; Z86.718 Personal history of other venous thrombosis and embolism; Z11.59 Encounter for screening for other viral diseases
CPT/HCPCS: 36415; 37244; 71045; 80048; 80053; 80061; 81241; 83090; 83735; 83880; 84484; 85025; 85300; 85301; 85302; 85305; 85306; 85347; 85610; 85730; 86147; 93005; 93306; 93454; 96374; 99285; C1725; C1893; J0282; J0583; J1644; J2250; J2270; J2405; J3010; J3475; J7030; J7040; J7060; U0002

== ENCOUNTER 2024-01-23 22:13 | Inpatient (IN) | payer OTHER ==
[2024-01-23 22:37] LABS: Absolute Basophils 0.1 K/uL (0-0.5); Absolute Eosinophils 0.2 K/uL (0-0.5); Absolute Lymphocytes (CBC) 2.3 K/uL (0.7-4.9); Absolute Monocytes 0.6 K/uL (0.1-1.3); Basophils % 0.7 % (0-1.3); Eosinophils % 2.3 % (0-4.4); Hematocrit 41.6 % (39.6-49.0); Hemoglobin 13.6 g/dL (13.6-17.9); Lymphocytes % 32.9 % (15.3-44.8); MCHC 32.6 g/dL (32.0-36.0); MCV 88.7 fL (80-100); MPV 8.5 fL (7.6-11.3); Monocytes % 8.3 % (3.3-12.3); Neutrophils % 55.8 % (41.7-73.7); Platelets 247 thou/uL (152-406); RBC Red Blood Cell Count 4.69 M/uL (4.33-5.43); Red Cell Distribution Width 16.7 % (12.1-15.2)
[2024-01-23 22:38] LABS: PT Prothrombin Time 12.2 SECONDS (9.4-12.5); Protime INR 1.09
[2024-01-23] MEDS ORDERED: METHYLPREDNISOLONE 125 MG INJ ONE (22:48)
[2024-01-23] MEDS ORDERED: ONDANSETRON 4 MG/2 ML VIAL ONE (22:48)
[2024-01-23] MEDS ORDERED: NA CHLORIDE 0.9% 2,000 ML ONE (22:49)
[2024-01-23] MEDS ORDERED: dilTIAZem HCL 25 MG/5 ML VIAL IV ONE ×2 (22:49→22:50)
[2024-01-23] MEDS ORDERED: NA CHLORIDE 0.9% 100 ML ONE (22:50)
[2024-01-23 23:12] LABS: ALT/SGPT 34 U/L (16-61); AST/SGOT 36 U/L (15-37); Albumin 3.8 g/dL (3.4-5.0); Albumin/Globulin Ratio 0.7 (1.1-1.8); Alkaline Phosphatase 117 U/L (45-117); BUN Blood Urea Nitrogen 34 mg/dL (7-18); Bicarbonate 20 mEq/L (21-32); Bilirubin Total 0.4 mg/dL (0.2-1.0); Globulin 5.3 g/dL (2.3-3.5); Glomerular Filtration Rate 24 ml/min (=/>90); Glucose Level 106 mg/dL (74-106); Magnesium 2.1 mg/dL (1.6-2.4); NT PRO-BNP 341 pg/mL (<125); Protein, Total 9.1 g/dL (6.4-8.2); Sodium Level 138 mEq/L (136-145); Troponin High Sensitivity 17.9 pg/mL (<58.9)
[2024-01-23 23:13] LABS: Bilirubin Direct < 0.2 mg/dL (0-0.2); Bilirubin Indirect, Calculated 0.2 mg/dL (0.2-0.8)
[2024-01-23 23:22] LABS: Blood Gas Oxyhemoglobin 91.1 % (94-97); Blood O2 Saturation 94.7 % (92-98.5)
[2024-01-23 23:23] LABS: Arterial Blood Carboxyhemoglob 2.1 % (0-1.5); Blood Gas THB 13.4 g/dl (12-18)
--- NOTE | 2024-01-24 01:06 | EDPHYS ---
Physician Documentation [facility] Name: Mushtaq Alba Age: 73 yrs Sex: Male : 1950 Arrival Date: 01/23/2024 Time: 22:13 Bed 2 Private MD: ED Physician Stanley Nunez HPI: 01/23 00:45 This 73 yrs old Male presents to ER via EMS with complaints of Irregular sp4 Pulse. 00:49 73-year-old male presents with acute onset of tachycardia, irregular pulse, shortness sp4 of breath, generalized weakness. . 00:55 EMS reported atrial fibrillation with RVR, patient was given adenosine 12 mg for sp4 possible SVT, which then precipitated slower rhythm that appeared to be atrial flutter.. Patient was then given diltiazem IV without significant improvement. . Historical: - Allergies: 01/22 22:30 No Known Allergies; al5 - PMHx: 22:30 CAD; Hypertensive disorder; Atrial fibrillation; al5 - PSHx: 22:30 Appendectomy; al5 - Immunization history:: Adult Immunizations up to date. - Infectious Disease History:: Denies. - Social history:: Smoking status: Patient reports the use of cigarette tobacco products, smokes one-half pack cigarettes per day, Patient uses street drugs, marijuana, Methamphetamine (Meth). - Family history:: not pertinent. ROS: 01/23 00:55 Constitutional: Negative for fever, chills, and weight loss, positive generalized sp4 weakness, positive palpitations, positive tachycardia. Positive shortness of breath. All other systems are negative, Exam: 00:55 Constitutional: This is a well developed, well nourished patient who is awake, thin sp4 appearing male, in respiratory distress. Pale appearing. Head/Face: Normocephalic, atraumatic. Eyes: Pupils equal round and reactive to light, extra-ocular motions intact. Lids and lashes normal. Conjunctiva and sclera are not injected. Cornea within normal limits. Periorbital areas with no swelling, redness, or edema. ENT: Nares patent. No nasal discharge, no septal abnormalities noted. Tympanic membranes are normal and external auditory canals are clear. Oropharynx with no redness, swelling, or masses, exudates, or evidence of obstruction, uvula midline. Mucous membranes moist. Neck: Trachea midline, no thyromegaly or masses palpated, and no cervical lymphadenopathy. Supple, full range of motion without nuchal rigidity, or vertebral point tenderness. Chest/axilla: Normal chest wall appearance and motion. Nontender with no deformity. No lesions are appreciated. Cardiovascular: Patient has a rapid irregular heart rate appears to be atrial fibrillation on the monitor. no gallops, murmurs, or rubs. Normal PMI, no JVD. No pulse deficits. Respiratory: Lungs have equal breath sounds bilaterally, positive for bilateral wheezing, positive for dyspnea and tachypnea. No retractions Abdomen/GI: Soft, with normal bowel sounds. No distension or tympany. No guarding or rebound. No evidence of tenderness throughout. Back: No spinal tenderness. No costovertebral tenderness. Male : Normal genitalia with no discharge or lesions. Skin: Warm, dry with normal turgor. Normal color with no rashes, no lesions, and no evidence of cellulitis. MS/ Extremity: Pulses equal, no cyanosis. Neurovascular intact. Full, normal range of motion. Neuro: Awake and alert, GCS 15, oriented to person, place, time, and situation. Cranial nerves II-XII grossly intact. Motor strength 5/5 in all extremities. Sensory grossly intact. Psych: Awake, alert, with orientation to person, place and time. Behavior, mood, and affect are within normal limits 00:55 ECG was reviewed by the Attending Physician. EKG at 2226 atrial fibrillation with RVR rate 146. 01:03 ECG was reviewed by the Attending Physician. EKG at 0046 conversion to normal sinus sp4 rhythm rate 97 , normal sinus rhythm rate 97. Vital Signs: 01/22 22:15 BP 119 / 73; Pulse 145; Resp 17; Pulse Ox 99% on R/A; al5 22:22 BP 92 / 61; Pulse 141; Resp 14; Temp 97.4; Pulse Ox 95% on R/A; Weight 61.23 kg; Height al5 5 ft. 8 in. ; 22:30 BP 129 / 57; Pulse 131; Resp 20; Pulse Ox 98% on R/A; al5 23:00 BP 114 / 78; Pulse 107; Resp 19; Pulse Ox 97% on R/A; al5 23:15 BP 134 / 69; Pulse 90; Resp 19; Pulse Ox 98% on R/A; al5 23:30 BP 131 / 79; Pulse 79; Resp 16; Pulse Ox 100% on R/A; al5 01/23 00:16 BP 123 / 73; Pulse 79; Resp 20; Pulse Ox 100% on R/A; al5 00:30 BP 117 / 70; Pulse 85; Resp 17; Pulse Ox 98% on R/A; al5 00:45 BP 112 / 60; Pulse 89; Resp 15; Pulse Ox 99% on R/A; al5 01:00 BP 139 / 67; Pulse 82; Resp 15; Pulse Ox 94% on R/A; al5 01:15 BP 114 / 76; Pulse 77; Resp 14; Pulse Ox 95% on R/A; al5 01:30 BP 148 / 94; Pulse 90; Resp 15; Pulse Ox 95% on R/A; al5 01:45 BP 132 / 87; Pulse 87; Resp 18; Pulse Ox 98% on R/A; al5 01/22 22:22 Body Mass Index 20.53 (61.23 kg, 172.72 cm) al5 Marlen Coma Score: 00:55 Eye Response: spontaneous(4). Motor Response: obeys commands(6). Verbal Response: sp4 oriented(5). Total: 15. MDM: 01/22 22:24 Medical Screening Exam initiated sp4 01/23 00:45 ED course: EXAM DESCRIPTION: Chest Single View CLINICAL HISTORY: 73 years Male, CHEST sp4 PAIN TECHNIQUE: 1 view (Single frontal view of the chest) COMPARISON: Prior images of chest x-ray 09/23/2019 were not made available at time of this interpretation, inference from the prior report may be made. FINDINGS: LINES AND TUBES: None. CARDIOVASCULAR STRUCTURES: Normal heart size. No pulmonary venous congestion. LUNGS: Pacer/defibrillator pad partially obscuring left hilum and retrocardiac region. No confluent areas of acute consolidation. Scattered calcified granulomata of the largest within the right midlung field measuring up to 10 mm. PLEURA: No layering pleural effusions. No pneumothorax. BONES: No acute osseous abnormality of the thorax. IMPRESSION: 1. No acute cardiopulmonary disease. 2. Old granulomatous disease. 3. Partial obscuration left hilum and retrocardiac region due to defibrillator/pacer pad.. 01:01 Differential diagnosis: acute myocardial infarction, acute pericarditis, anxiety, sp4 coronary artery disease chest wall pain, Cholelithiasis esophagitis, gastritis. HEART Score: History: Highly Suspicious (2), ECG: Non specific repolarization disturbance / LBTB / PM (1), Age: > or = 65 years (2), Risk Factors: 1 or 2 risk factors (1), Troponin: < or = 1 x Normal Limit (0), Total Score = 6. The patient was given aspirin in the Emergency Department. Data reviewed: vital signs, nurses notes, EMS record, old medical records, lab test result(s), EKG, radiologic studies, plain films. 01:03 ED course: Patient stable for admission for monitoring and further assessment.. [facility] 01/22 22:17 Order name: Basic Metabolic Panel; Complete Time: 00:43 sp4 01/22 22:17 Order name: CBC with Diff; Complete Time: 00:43 sp4 01/22 22:17 Order name: LFT's; Complete Time: 00:43 4 01/22 22:17 Order name: Magnesium; Complete Time: 00:43 sp4 01/22 22:17 Order name: NT PRO-BNP; Complete Time: 00:43 sp4 01/22 22:17 Order name: PT-INR; Complete Time: 00:43 sp4 01/22 22:17 Order name: Troponin HS; Complete Time: 00:43 sp4 01/22 22:17 Order name: Alcohol Level; Complete Time: 00:43 sp4 01/22 22:17 Order name: Urine Drug Screen [facility] 01/22 22:18 Order name: ABG; Complete Time: 00:43 4 01/22 22:18 Order name: TSH; Complete Time: 00:43 sp4 01/22 22:18 Order name: T4 Free; Complete Time: 00:43 sp4 01/23 01:10 Order name: T3 Free [facility] 01/23 01:24 Order name: Magnesium [facility] 01/23 01:24 Order name: NT PRO-BNP [facility] 01/23 01:24 Order name: Phosphorus [facility] 01/23 01:24 Order name: Urinalysis w/ reflexes [facility] 01/23 01:24 Order name: Basic Metabolic Panel [facility] 01/23 01:24 Order name: Basic Metabolic Panel [facility] 01/23 01:24 Order name: CBC with Automated Diff [facility] 01/23 01:24 Order name: CBC with Automated Diff [facility] 01/23 01:24 Order name: Lipid Profile [facility] 01/23 01:24 Order name: Lipid Profile [facility] 01/23 01:24 Order name: Troponin High Sensitivity [facility] 01/23 01:24 Order name: Troponin High Sensitivity [facility] 01/23 01:24 Order name: Troponin High Sensitivity ED[facility] 01/23 01:24 Order name: Troponin High Sensitivity [facility] 01/22 22:17 Order name: XRAY Chest (1 view) sp4 01/23 01:25 Order name: Echo with Doppler EDMS 01/23 01:24 Order name: CONS Physician Consult EDMS 01/22 22:17 Order name: Cardiac monitoring; Complete Time: 22:37 sp4 01/22 22:17 Order name: EKG - Nurse/Tech; Complete Time: 22:37 sp4 01/22 22:17 Order name: IV Saline Lock; Complete Time: 22:37 sp4 01/22 22:17 Order name: Labs collected and sent; Complete Time: 22:37 sp4 01/22 22:17 Order name: O2 Per Protocol; Complete Time: 22:37 sp4 01/22 22:17 Order name: O2 Sat Monitoring; Complete Time: 22:37 sp4 EC/06 22:26 Rate is 146 beats/min. Rhythm is irregularly irregular, A fib with Rapid ventricular sp4 response. QRS Lamont is Normal. QRS interval is normal. QT interval is normal. No Q waves. T waves are Normal. No ST changes noted. Clinical impression: Atrial Fibrillation. Interpreted by me. Reviewed by me. Administered Medications: 01/23 01:08 Discontinued: diltiazem 5 mg/hr IV at calculated rate See Administration Instructions; sp4 (standard dilution 125 mg diltiazem mixed in 125 mL NS; final concentration 1mg/mL). Recommended max rate 15 mg/hr; Titrate 5 mg/hr as often as every 15 minutes to achieve goal (see titration policy); Goal parameter HR less than 100 bpm 01/22 22:55 Drug: NS 0.9% IV 1000 ml IV at 1 bolus Per protocol; to be given as a bolus over 60 al5 minutes Route: IV; Rate: 1 bolus; Site: left upper arm; 01/23 00:52 Follow up: Response: No adverse reaction; IV Status: Completed infusion; IV Intake: al5 1000ml 01/22 22:55 Drug: Ondansetron IVP 4 mg IVP once; over 2 minutes Route: IVP; Site: left upper arm; al5 01/23 00:51 Follow up: Response: No adverse reaction; Nausea is decreased al5 01/22 22:55 Drug: Diltiazem IV 5 mg/hr IV at calculated rate See Administration Instructions; al5 (standard dilution 125 mg diltiazem mixed in 125 mL NS; final concentration 1mg/mL). Recommended max rate 15 mg/hr; Titrate 5 mg/hr as often as every 15 minutes to achieve goal (see titration policy); Goal parameter HR less than 100 bpm Route: IV; Rate: calculated rate; Site: left upper arm; 01/23 00:51 Follow up: Response: No adverse reaction; Cardiac rhythm changed al5 01/22 22:55 Drug: MethylPrednisoLONE IVP 125 mg IVP once Route: IVP; Site: left [facility] arm; al5 01/23 00:51 Follow up: Response: No adverse reaction al5 01/22 22:55 Drug: Diltiazem IVP 10 mg IVP once; Over 2 minutes Route: IVP; Site: left upper arm; al5 01/23 00:51 Follow up: Response: No adverse reaction; Cardiac rhythm changed 5 00:52 Drug: NS 0.9% IV 1000 ml IV at 125 ml/hr continuous Route: IV; Rate: 125 ml/hr; Site: [facility]; 01:58 Follow up: Response: No adverse reaction; IV Status: Infusion continued upon admission al5 02:22 Follow up: Response: No adverse reaction; IV Status: Infusion continued upon admission al5 01:58 Drug: Enoxaparin Sub-Q 60 mg Sub-Q once Route: Sub-Q; Site: right lower abdomen; al5 02:22 Follow up: Response: No adverse reaction 5 01:58 Drug: Aspirin PO Chewable Tablet 324 mg PO once; 81 mg tablets x 4 Route: PO; al5 02:22 Follow up: Response: No adverse reaction al5 Disposition: 01:06 Critical Care:. sp4 Disposition Summary: 01/24/24 01:06 Hospitalization Ordered Notes: Hospitalization Status: Inpatient Admission sp4 Provider: [place], [place] sp4 Location: Telemetry/MedSurg (Inpatient) sp4 Condition: Fair sp4 Problem: new sp4 Symptoms: have improved sp4 Bed/Room Type: Standard sp4 Room Assignment: 228(01/24/24 01:32) rv1 Diagnosis - Paroxysmal atrial fibrillation sp4 - COPD exacerbation, acute onset atrial fibrillation with RVR , methamphetamine sp4 abuse, tobacco use disorder Forms: - Medication Reconciliation Form sp4 - SBAR form sp4 - Leadership Thank You Letter sp4 Critical care time excluding procedures: 01:06 Critical care time: Bedside Care: 36 minutes, Consultation: 12 minutes, Family sp4 Intervention: 12 minutes. Total time: 60 minutes Signatures: Dispatcher [employer] EDMS Yanez Loretta rv1 Stanley Nunez MD MD sp4 Luciana Toussaint RN RN al5 Corrections: (The following items were deleted from the chart) 01/22 22:18 22:18 ETHANOL+C.LAB.BRZ ordered. EDMS EDMS 22:18 22:18 URINE DRUG SCREEN+UC.LAB.BRZ ordered. EDMS EDMS 01/23 01:01 00:55 Rate is 146 beats/min. Rhythm is irregularly irregular, A fib with Rapid sp4 ventricular response. QRS Lamont is Normal. QRS interval is normal. QT interval is normal. No Q waves. T waves are Normal. No ST changes noted. Clinical impression: Atrial Fibrillation. Interpreted by me. Reviewed by me. sp4 01:32 01:06 sp4 rv1
--- NOTE | 2024-01-24 01:06 | ER ---
Nurse's Notes [facility] Name: Mushtaq Alba Age: 73 yrs Sex: Male : 1950 Arrival Date: 01/23/2024 Time: 22:13 Bed 2 Private MD: Diagnosis: Paroxysmal atrial fibrillation;COPD exacerbation, acute onset atrial fibrillation with RVR , methamphetamine abuse, tobacco use disorder Presentation: 01/22 22:22 Chief complaint: EMS states: ems toned out for "heart attack" per the patient. on scene al5 patient diaphoretic, c/o nausea and chest pain. 12 lead initiated and showed irregular a-fib with a HR in the 160's per ems. Coronavirus screen: At this time, the client does not indicate any symptoms associated with coronavirus-19. Ebola Screen: No symptoms or risks identified at this time. Initial Sepsis Screen: Does the patient meet any 2 criteria? HR > 90 bpm. No. Patient's initial sepsis screen is negative. Does the patient have a suspected source of infection? No. Patient's initial sepsis screen is negative. Risk Assessment: Do you want to hurt yourself or someone else? Patient reports no desire to harm self or others. Onset of symptoms was January 23, 2024. 22:22 Method Of Arrival: EMS: [facility] al5 22:22 Acuity: COLLEEN 2 al5 22:22 Care prior to arrival: Medication(s) given: Adenosine, 12 mg, x 1, diltiazem drip 100 al5 mg, discontinued once arrived into patient room 3L nasal cannula. 22:22 Care prior to arrival: IV initiated. 20 GA, in the left forearm. al5 Triage Assessment: 22:32 General: Appears in no apparent distress. slender, Behavior is calm, cooperative. Pain: al5 Denies pain. EENT: No signs and/or symptoms were reported regarding the EENT system. Neuro: Level of Consciousness is awake, alert, obeys commands, Oriented to person, place, time, situation. Cardiovascular: skin cool and dry. Rhythm is sinus tachycardia. Respiratory: Airway is patent Respiratory effort is even, unlabored, Respiratory pattern is regular, symmetrical. GI: No signs and/or symptoms were reported involving the gastrointestinal system. Abdomen is flat, non-distended. : No signs and/or symptoms were reported regarding the genitourinary system. Derm: Skin is intact, Skin is dry, Skin is dusky, Skin temperature is cool. Musculoskeletal: No signs and/or symptoms reported regarding the musculoskeletal system. Historical: - Allergies: 22:30 No Known Allergies; al5 - PMHx: 22:30 CAD; Hypertensive disorder; Atrial fibrillation; al5 - PSHx: 22:30 Appendectomy; al5 - Immunization history:: Adult Immunizations up to date. - Infectious Disease History:: Denies. - Social history:: Smoking status: Patient reports the use of cigarette tobacco products, smokes one-half pack cigarettes per day, Patient uses street drugs, marijuana, Methamphetamine (Meth). - Family history:: not pertinent. Screenin:35 [facility] ED Fall Risk Assessment (Adult) History of falling in the last 3 months, al5 including since admission No falls in past 3 months (0 pts) Confusion or Disorientation No (0 pts) Intoxicated or Sedated No (0 pts) Impaired Gait No (0 pts) Mobility Assist Device Used No (0 pt) Altered Elimination No (0 pt) Score/Fall Risk Level 0 - 2 = Low Risk Oriented to surroundings, Maintained a safe environment, Hourly rounding (assess needs \\T\\ fall precautionary measures) done. Abuse screen: Denies threats or abuse. Denies injuries from another. Nutritional screening: No deficits noted. Tuberculosis screening: No symptoms or risk factors identified. Assessment: 22:35 Reassessment: see triage assessment. Pain: denies pain Pain began denies pain. al5 23:58 Reassessment: Patient appears in no apparent distress at this time. Patient and/or al5 family updated on plan of care and expected duration. Pain level reassessed. Patient is alert, oriented x 3, equal unlabored respirations, skin warm/dry/pink. Patient states feeling better. 11/07 00:26 General: Appears in no apparent distress. comfortable, Behavior is calm, cooperative. al5 Pain: Denies pain. Neuro: Level of Consciousness is awake, alert, obeys commands, Oriented to person, place, time, situation. Cardiovascular: Capillary refill < 3 seconds Patient's skin is warm and dry. Rhythm is sinus rhythm. Respiratory: Airway is patent Respiratory effort is even, unlabored, Respiratory pattern is regular, symmetrical. GI: No signs and/or symptoms were reported involving the gastrointestinal system. : No signs and/or symptoms were reported regarding the genitourinary system. EENT: No signs and/or symptoms were reported regarding the EENT system. Derm: Skin is intact, Skin is pink, warm \\T\\ dry. normal. Musculoskeletal: No signs and/or symptoms reported regarding the musculoskeletal system. 02:21 Reassessment: Patient appears in no apparent distress at this time. No changes from al5 previously documented assessment. Patient and/or family updated on plan of care and expected duration. Pain level reassessed. Patient is alert, oriented x 3, equal unlabored respirations, skin warm/dry/pink. Vital Signs: 01/22 22:15 BP 119 / 73; Pulse 145; Resp 17; Pulse Ox 99% on R/A; al5 22:22 BP 92 / 61; Pulse 141; Resp 14; Temp 97.4; Pulse Ox 95% on R/A; Weight 61.23 kg; Height al5 5 ft. 8 in. ; 22:30 BP 129 / 57; Pulse 131; Resp 20; Pulse Ox 98% on R/A; al5 23:00 BP 114 / 78; Pulse 107; Resp 19; Pulse Ox 97% on R/A; al5 23:15 BP 134 / 69; Pulse 90; Resp 19; Pulse Ox 98% on R/A; al5 23:30 BP 131 / 79; Pulse 79; Resp 16; Pulse Ox 100% on R/A; al5 01/23 00:16 BP 123 / 73; Pulse 79; Resp 20; Pulse Ox 100% on R/A; al5 00:30 BP 117 / 70; Pulse 85; Resp 17; Pulse Ox 98% on R/A; al5 00:45 BP 112 / 60; Pulse 89; Resp 15; Pulse Ox 99% on R/A; al5 01:00 BP 139 / 67; Pulse 82; Resp 15; Pulse Ox 94% on R/A; al5 01:15 BP 114 / 76; Pulse 77; Resp 14; Pulse Ox 95% on R/A; al5 01:30 BP 148 / 94; Pulse 90; Resp 15; Pulse Ox 95% on R/A; al5 01:45 BP 132 / 87; Pulse 87; Resp 18; Pulse Ox 98% on R/A; al5 01/22 22:22 Body Mass Index 20.53 (61.23 kg, 172.72 cm) al5 Marlen Coma Score: 00:55 Eye Response: spontaneous(4). Motor Response: obeys commands(6). Verbal Response: sp4 oriented(5). Total: 15. ED Course: 01/22 22:14 Patient arrived in ED. jj6 22:17 Stanley Nunez MD is Attending Physician. sp4 22:21 Luciana Toussaint RN is Primary Nurse. al5 22:27 Inserted saline lock: 22 gauge in right upper arm, using aseptic technique. Blood vc1 collected. Flushed with 10 mL NS. 22:30 Triage completed. al5 22:34 Arm band placed on right wrist. Patient placed in the treatment room, on a stretcher, al5 on oxygen, on director of cardiac cath lab, on pulse oximetry. EKG completed in triage. Results shown to MD. 22:36 No provider procedures requiring assistance completed. Maintain EMS IV. Dressing al5 intact. Good blood return noted. Site clean \\T\\ dry. Gauge \\T\\ site: 20G L forearm. Patient maintains SpO2 saturation greater than 95% on room air. 22:36 Patient has correct armband on for positive identification. Placed in gown. Bed in low al5 position. Call light in reach. Side rails up X2. Provided Education on: plan of care. Client placed on continuous cardiac and pulse oximetry monitoring. NIBP monitoring applied. art director on. 22:52 XRAY Chest (1 view) In Process Unspecified. EDMS 01/23 01:04 Prince Stout MD is Hospitalizing Provider. sp4 02:55 Patient admitted, IV remains in place. vc1 Administered Medications: 01:08 Discontinued: diltiazem 5 mg/hr IV at calculated rate See Administration Instructions; sp4 (standard dilution 125 mg diltiazem mixed in 125 mL NS; final concentration 1mg/mL). Recommended max rate 15 mg/hr; Titrate 5 mg/hr as often as every 15 minutes to achieve goal (see titration policy); Goal parameter HR less than 100 bpm 01/22 22:55 Drug: NS 0.9% IV 1000 ml IV at 1 bolus Per protocol; to be given as a bolus over 60 al5 minutes Route: IV; Rate: 1 bolus; Site: left upper arm; 01/23 00:52 Follow up: Response: No adverse reaction; IV Status: Completed infusion; IV Intake: al5 1000ml 01/22 22:55 Drug: Ondansetron IVP 4 mg IVP once; over 2 minutes Route: IVP; Site: left upper arm; al5 01/23 00:51 Follow up: Response: No adverse reaction; Nausea is decreased al5 01/22 22:55 Drug: Diltiazem IV 5 mg/hr IV at calculated rate See Administration Instructions; al5 (standard dilution 125 mg diltiazem mixed in 125 mL NS; final concentration 1mg/mL). Recommended max rate 15 mg/hr; Titrate 5 mg/hr as often as every 15 minutes to achieve goal (see titration policy); Goal parameter HR less than 100 bpm Route: IV; Rate: calculated rate; Site: left upper arm; 01/23 00:51 Follow up: Response: No adverse reaction; Cardiac rhythm changed al5 01/22 22:55 Drug: MethylPrednisoLONE IVP 125 mg IVP once Route: IVP; Site: left upper arm; al5 01/23 00:51 Follow up: Response: No adverse reaction al5 01/22 22:55 Drug: Diltiazem IVP 10 mg IVP once; Over 2 minutes Route: IVP; Site: left upper arm; al5 01/23 00:51 Follow up: Response: No adverse reaction; Cardiac rhythm changed 00:52 Drug: NS 0.9% IV 1000 ml IV at 125 ml/hr continuous Route: IV; Rate: 125 ml/hr; Site: [address]; 01:58 Follow up: Response: No adverse reaction; IV Status: Infusion continued upon admission 5 02:22 Follow up: Response: No adverse reaction; IV Status: Infusion continued upon admission 01:58 Drug: Enoxaparin Sub-Q 60 mg Sub-Q once Route: Sub-Q; Site: right lower abdomen; al5 02:22 Follow up: Response: No adverse reaction 01:58 Drug: Aspirin PO Chewable Tablet 324 mg PO once; 81 mg tablets x 4 Route: PO; 5 02:22 Follow up: Response: No adverse reaction al5 Medication: 01/22 22:35 VIS not applicable for this client. al5 Intake: 01/23 00:52 IV: 1000ml; Total: 1000ml. al5 Outcome: 01:06 Decision to Hospitalize by Provider. sp4 02:55 Admitted to Med/surg accompanied by tech, via wheelchair, room 228, vc1 02:55 Condition: good 02:56 Patient left the ED. vc1 Signatures: Dispatcher [employer] EDMS Elizabeth Pastor jj6 Pati Ellison RN RN vc1 Stanley Nunez MD MD sp4 Luciana Toussaint RN RN al5
[2024-01-24] MEDS ORDERED: ONDANSETRON 4 MG/2 ML VIAL IV PRN (01:20)
[2024-01-24] MEDS ORDERED: SODIUM CHLORIDE 0.9% 10ML INJ IV PRN (01:29)
[2024-01-24] MEDS: PANTOPRAZOLE 40 MG INJ IVP SCH (01:29)
[2024-01-24] MEDS ORDERED: GLUCAGON 1 MG/VIAL IM PRN (01:30)
[2024-01-24] MEDS ORDERED: D10W 125 ML IV PRN ×2 (01:30→01:36)
--- NOTE | 2024-01-24 01:30 | P.HP ---
Certification for Inpatient Patient admitted to: Inpatient With expected LOS: >2 Midnights Practitioner: I am a practitioner with admitting privileges, knowledge of patient current condition, hospital course, and medical plan of care. Services: Services provided to patient in accordance with Admission requirements found in Title 42 Section 412.3 of the Code of Federal Regulations Patient History Date of Service: 01/24/24 Reason for admission: rapid afib History of Present Illness: Patient is a 79 patient is a 73-year-old male with a known past medical history of coronary disease status post PR and PCI. He also has a history of chronic kidney disease, atrial fibrillation, type 2 diabetes mellitus, hypothyroidism and depression and anxiety. He is brought in via EMS. Patient states that his home care nurse became concerned and called the EMS. Symptomatically, he is reporting abdominal discomfort. Patient is a poor historian. Was found to be in rapid A-fib in the ER with ventricular rate of 146. Received diltiazem infusion and full dose Lovenox. Allergies No Known Allergies Allergy (Unverified 09/23/19 11:16) Home Medications: Nortriptyline HCl [Pamelor] 50 mg PO BEDTIME 09/23/19 Aspirin Chewable [Aspirin Chewable*] 81 mg PO DAILY #90 tab.chew 09/26/19 Atorvastatin Calcium [Lipitor] 80 mg PO BEDTIME #30 tab 09/26/19 Chlorhexidine Gluconate 12 % PO TID 09/26/19 Clopidogrel Bisulfate [Plavix*] 75 mg PO DAILY #30 tablet 09/26/19 Isosorbide Mononitrate [Isosorbide Mononitrate ER] 120 mg PO DAILY 09/26/19 Metoprolol Succinate [Toprol Xl] 25 mg PO DAILY 09/26/19 Nitroglycerin [Nitrostat*] 0.4 mg SL SEECOM #30 tab 09/26/19 - Past Medical/Surgical History Diabetic: No -: HTN -: Blood clots -: DVT -: CAD -: Appendectomy -: spinal Sx. - Social History Alcohol use: No CD- Drugs: Yes Caffeine use: Yes Physical Examination - Physical Exam General: In no apparent distress, Cachectic HEENT: Atraumatic, Normocephalic Respiratory: Clear to auscultation bilaterally, Normal air movement Cardiovascular: Normal S1 S2, Irregular heart rate/rhythm, Systolic murmur Gastrointestinal: Soft and benign, Non-distended Neurological: Normal speech - Studies Laboratory Data (last 24 hrs) 01/23/24 01/23/24 01/23/24 22:22 22:22 22:22 WBC 7.10 Hgb 13.6 Hct 41.6 Plt Count 247 PT 12.2 INR 1.09 Sodium 138 Potassium 5.0 BUN 34 H Creatinine 2.72 H Glucose 106 Magnesium 2.1 Total Bilirubin 0.4 AST 36 ALT 34 Alkaline Phosphatase 117 Assessment and Plan - Problems (Diagnosis) (1) Rapid atrial fibrillation Current Visit: Yes Status: Acute (2) CAD (coronary artery disease) Current Visit: No Status: Acute - Plan Assessment Patient is a 73 year old male brought in by EMS. He was found to be in rapid afib in the ER. He received full dose lovenox and is currently on diltiazem drip Rapid Afib REMBERTO CAD S/P PCI Polysubstance abuse Severe malnutrition PLAN: Will admit with telemetry Continue diltiazem infusion TTE ordered Cardiology consulted Patient will also be on NS infusion for REMBERTO He is known to Nephrology. Nephrology consulted Follow urine toxicology PPI Patient is full code - Advance Directives Does patient have a Living Will: No Does patient have a Durable POA for Healthcare: No
[2024-01-24] MEDS ORDERED: ASPIRIN 81 MG CHEWABLE TABLET ONE (01:52)
[2024-01-24] MEDS ORDERED: ENOXAPARIN 60 MG/0.6 ML SQ ONE (01:53)
[2024-01-24] MEDS: NA CHLORIDE 0.9% 1,000 ML IV SCH (03:49)
[2024-01-24 04:29] VITALS: O2SAT 98; BMI 20.5
[2024-01-24 06:10] LABS: Phosphorus 3.1 mg/dL (2.5-4.9)
[2024-01-24 07:26] LABS: Absolute Lymphocytes (CBC) 0.7 K/uL (0.7-4.9); Absolute Neutrophil 6.4 K/uL (1.8-8.0); Basophils % 0.2 % (0-1.3); Hematocrit 37.1 % (39.6-49.0); Hemoglobin 11.9 g/dL (13.6-17.9); Lymphocytes % 9.5 % (15.3-44.8); MCH 28.6 pg (27.0-35.0); MCHC 32.2 g/dL (32.0-36.0); MCV 88.9 fL (80-100); MPV 9.4 fL (7.6-11.3); Monocytes % 0.7 % (3.3-12.3); Neutrophils % 89.6 % (41.7-73.7); Platelets 224 thou/uL (152-406); RBC Red Blood Cell Count 4.17 M/uL (4.33-5.43); Red Cell Distribution Width 16.9 % (12.1-15.2)
[2024-01-24] MEDS: INSULIN REGULAR (HUMAN) 100 UNIT/ML SQ SCH (07:30)
[2024-01-24 07:42] LABS: Specific Gravity 1.018 (1.005-1.030); Sqamous Epithelial None Seen /HPF (None Seen); Urine Bacteria None Seen /HPF (<20); Urine Bilirubin NEGATIVE (Negative); Urine Blood Trace (Negative); Urine Clarity Clear (Clear); Urine Color Yellow (Yellow); Urine Culture Reflex Order NOT NEEDED; Urine Glucose NEGATIVE (Negative); Urine Ketones NEGATIVE (Negative); Urine Microscopic Reflex YN ORDER UMIC; Urine Nitrite NEGATIVE (Negative); Urine Protein TRACE (Negative); Urine RBC <5 /HPF (None Seen); Urine Urobilinogen Normal (Normal); Urine WBC <5 /HPF (<5); Urine pH 5.5 (5.0-7.0)
--- NOTE | 2024-01-24 07:44 | P.PN ---
Date of Service: 01/24/24 Subjective: feeling better today back to his normal self converted into sinus rhythm shortly after admission denies any prior diagnosis of a-fib/flutter reports compliance with home meds. No change in home meds recently denies any new OTC meds ROS: 10 point ROS as noted above, otherwise negative Physical Exam: GEN: Alert, NAD HEENT: Normal conjunctiva, sclera anicteric, CV: Regular rate and rhythm, systolic murmur Pulm: Nonlabored respirations on room air, slight diminished at bedside ABD: soft, nontender, nondistended Neuro: Normal speech, normal affect Problem List: A-fib with RVR, new onset REMBERTO on CKD Severe left-sided Hydronephrosis, ?chronic Polysubstance abuse Hx Hypothyroidism NIDDM2 Hypertension Depression/Anxiety Severe protein calorie malnutrition hx CAD s/p PCI Hx PVD with prior right DONNA stent hx provoked PE (2015) s/p IVC filter A-fib with RVR, new onset hx provoked DVT/PE (2015) s/p IVC filter on admission, presents with elevated HR in 130-140s - Found to be in a-fib RVR; associated with shortness of breath, weakness, abdominal discomfort. Denies any prior diagnosis of a-fib/flutter has history of provoked PE after cervical spine surgery in 2016. s/p IVC filter placement "d/t unable to tolerate AC in past" per outside reports - one note reported "post-op bleeding" patient denies any significant bleeds in past, unsure why CXR (01/22): old granulomatous disease. Partial obscuration left hilum and retrocardiac region d/t defibrillator/pacer. s/p diltiazem drip and full dose lovenox in ED; converted back into sinus rhythm in ED. Cardiology consulted continue home metoprolol dc plavix start eliquis continue statin echo (01/23): completed, pending report monitor on telemetry urine tox screen positive for amphetamines - which could lead to the tachyarrhythmia hypothyroidism, may need to increase synthroid if dose hasn't been titrated up in awhile REMBERTO on CKD Severe left-sided Hydronephrosis, chronic creatinine 2.72 on admission. Unknown baseline. Has history of CKD per H&P. ~1.1 in 03/2023: 2.4, 09/2023: 2.0 renal u/s (01/23): severe left sided hydro. 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 Mild prostatomegaly. Infra-renal IVC filter in place was told to follow up with urologist at the time. Hasn't followed up with anyone since. diagnosis history from [facility] notes "bladder polyps" hydronephrosis stable from 10/2023 to 01/2024, with seemingly stable renal function likely close urology follow up, if worsens will see if urology is available for consult Nephrology consulted continue IV fluids continue to monitor renal function Monitor and replete electrolytes as needed Polysubstance abuse tox screen positive for amphetamines/THC cessation advised Hx Hypothyroidism confirm home meds TSH significantly elevated 27.7 Free T4: 0.86 / Free T3: 2.19 NIDDM2 accu-cheks, SSI PRN glucagon Hypertension Depression/Anxiety confirm home meds, restart as appropriate hx CAD s/p PCI Hx PVD with prior right DONNA stent resume home plavix, statin, metoprolol VTE: eliquis Code: Full Dispo: Home, ~1-2 days Pending cardiac/nephrology recs Time Spent Managing Pts Care (In Minutes): 51
[2024-01-24 07:52] LABS: Anion Gap 10.4 mEq/L (5.0-15.0); Potassium 4.4 mEq/L (3.5-5.1)
--- NOTE | 2024-01-24 08:15 | RAD REPORT ---
EXAMINATION: US RENAL ULTRASOUND CLINICAL INDICATION: kiah, 10/22/23 CT with severe L hydronephrosis TECHNIQUE: Real-time ultrasonography of the abdomen was performed. COMPARISON: No prior exam. FINDINGS: RIGHT KIDNEY: Right renal length measurement: 9.5 x 5.1 x 4.4 cm. Normal in echogenicity and size. No calculus, solid mass or hydronephrosis. LEFT KIDNEY: Left renal length measurement: 9.3 x 4.1 x 3.8 cm. Severe hydronephrosis. URINARY BLADDER: 20 x 16 mm mass lesion is identified in the urinary bladder. ADDITIONAL FINDINGS: None. IMPRESSION: Severe left sided hydronephrosis. 20 mm mass in the urinary bladder suspicious for malignancy. Direct visualization with cystoscopy wo uld be recommended.
[2024-01-24] MEDS: METOPROLOL XL 25 MG TAB PO SCH (08:36)
[2024-01-24] MEDS: CLOPIDOGREL 75 MG TABLET PO SCH (08:37)
[2024-01-24] MEDS: FLU (Fluarix Triv) TS24-25(6MOS UP)/PF 45 MCG/0.5 ML Syringe IM ONE (08:40)
--- NOTE | 2024-01-24 09:19 | RAD REPORT ---
EXAM DESCRIPTION: Chest Single View CLINICAL HISTORY: 73 years Male, CHEST PAIN TECHNIQUE: 1 view (Single frontal view of the chest) COMPARISON: Prior images of chest x-ray 09/23/2019 were not made available at time of this interpretati on, inference from the prior report may be made. FINDINGS: LINES AND TUBES: None. CARDIOVASCULAR STRUCTURES: Normal heart size. No pulmonary venous congestion. LUNGS: Pacer/defibrillator pad partially obscuring left hilum and retrocardiac region. No confluent a reas of acute consolidation. Scattered calcified granulomata of the largest within the right midlung field measuring up to 10 mm. PLEURA: No layering pleural effusions. No pneumothorax. BONES: No acute osseous abnormality of the thorax. IMPRESSION: 1. No acute cardiopulmonary disease. 2. Old granulomatous disease. 3. Partial obscuration left hilum and retrocardiac region due to defibrillator/pacer pad. Electronically signed by: Prateek Lord MD 01/23/2024 11:06 PM [facility] N Transcribed Date/Time: 01/24/2024 9:19 AM
[2024-01-24 09:27] LABS: Blood Morphology Comment NOT SEEN (NOT SEEN); Platelet Estimate ADEQ; White Blood Cell Scan OK (OK)
[2024-01-24 11:03] LABS: Barbiturates NEGATIVE (NEGATIVE); Benzodiazepines NEGATIVE (NEGATIVE); Cocaine NEGATIVE (NEGATIVE); METHAMPHETAM POSITIVE (NEGATIVE); Methadone NEGATIVE (NEGATIVE); Opiates NEGATIVE (NEGATIVE); Phencyclidine NEGATIVE (NEGATIVE); THC Cannibis POSITIVE (NEGATIVE)
--- NOTE | 2024-01-24 11:12 | P.CNS ---
Date of Consult: 01/24/24 Chief Complaint: rapid afib History of Present Illness: Patient with PMH of atrial fibrillation, CAD s/p PCI, presented with abdominal pain, and palpitations, found to be in AF RVR, denies chest pain, no breathing problems, no syncope. Allergies No Known Allergies Allergy (Unverified 09/23/19 11:16) Home medications list reviewed: Yes Home Medications: Nortriptyline HCl [Pamelor] 50 mg PO BEDTIME 09/23/19 Aspirin Chewable [Aspirin Chewable*] 81 mg PO DAILY #90 tab.chew 09/26/19 Atorvastatin Calcium [Lipitor] 80 mg PO BEDTIME #30 tab 09/26/19 Chlorhexidine Gluconate 12 % PO TID 09/26/19 Clopidogrel Bisulfate [Plavix*] 75 mg PO DAILY #30 tablet 09/26/19 Isosorbide Mononitrate [Isosorbide Mononitrate ER] 120 mg PO DAILY 09/26/19 Metoprolol Succinate [Toprol Xl] 25 mg PO DAILY 09/26/19 Nitroglycerin [Nitrostat*] 0.4 mg SL SEECOM #30 tab 09/26/19 - Past Medical/Surgical History Diabetic: No -: HTN -: Blood clots -: DVT -: CAD -: Appendectomy -: spinal Sx. -: cardiac stents - Family History Father Medical History: Stroke Mother Medical History: Diabetes, Cancer - Social History Smoking Status: Current every day smoker Alcohol use: No CD- Drugs: Yes Caffeine use: Yes Place of Residence: Home Review of Systems 10-point ROS is otherwise unremarkable Physical Examination Temp Pulse Resp BP Pulse Ox 98 F 79 15 131/65 97 01/24/24 08:00 01/24/24 08:36 01/24/24 08:00 01/24/24 08:36 01/24/24 08:00 General: Alert, In no apparent distress HEENT: Atraumatic, PERRLA, Mucous membr. moist/pink, EOMI, Sclerae nonicteric Neck: Supple, 2+ carotid pulse no bruit, No LAD, Without JVD or thyroid abn ormality Respiratory: Clear to auscultation bilaterally, Normal air movement Cardiovascular: Regular rate/rhythm, Normal S1 S2 Gastrointestinal: Normal bowel sounds, No tenderness Musculoskeletal: No tenderness Integumentary: No rashes Neurological: Normal gait, Normal speech, Normal tone, Normal affect Lymphatics: No axilla or inguinal lymphadenopathy Laboratory Data (last 24 hrs) 01/23/24 01/23/24 01/23/24 22:22 22:22 22:22 WBC 7.10 Hgb 13.6 Hct 41.6 Plt Count 247 PT 12.2 INR 1.09 Sodium 138 Potassium 5.0 BUN 34 H Creatinine 2.72 H Glucose 106 Magnesium 2.1 Total Bilirubin 0.4 AST 36 ALT 34 Alkaline Phosphatase 117 - Problems (1) Rapid atrial fibrillation Current Visit: Yes Status: Acute Plan: Patient with history of AF, now in sinus rhythm. Continue Toprol XL 25 mg daily start Eliquis 5 mg po BID stop Plavix. (2) CAD (coronary artery disease) Current Visit: No Status: Acute Plan: Patient denies chest pain, last OR per patient was more than 12 months. Stop Plavix Continue ASA 81 mg daily Continue Toprol XL Continue Lipitor 80 mg daily
--- NOTE | 2024-01-24 13:20 | ECHO ---
HEIGHT: 5 ft 8 in WEIGHT: 135 lb 0 oz DATE OF STUDY: 01/24/[address]: Prince Alexandra Stout MD 2-DIMENSIONAL: YES M.MODE: YES DOPPLER: YES COLOR FLOW: YES TDS: YES PORTABLE: YES DEFINITY: NO BUBBLE STUDY: NO DIAGNOSIS: NEW ONSET ATRIAL FIBRILLATION CARDIAC HISTORY: CATHERIZATION:YES SURGERY: NO PROSTHETIC VALVE: NO PACEMAKER: NO MEASUREMENTS (cm) DIASTOLIC (NORMALS) SYSTOLIC (NORMALS) IVSd 0.9 (0.6-1.2) LA Diam 2.2 (1.9-4.0) LVEF 62% LVIDd 3.6 (3.5-5.7) LVIDs 2.4 (2.0-3.5) %FS 32% LVPWd 1.1 (0.6-1.2) Ao Diam 2.5 (2.0-3.7) 2 DIMENSIONAL ASSESSMENT: RIGHT ATRIUM: NORMAL LEFT ATRIUM: NORMAL RIGHT VENTRICLE: NORMAL LEFT VENTRICLE: NORMAL TRICUSPID VALVE: TRACE TRICUSPID REGURGITATION MITRAL VALVE: NORMAL PULMONIC VALVE: NORMAL AORTIC VALVE: NORMAL PERICARDIAL EFFUSION: NONE AORTIC ROOT: NORMAL LEFT VENTRICULAR WALL MOTION: NORMAL. DOPPLER/COLOR FLOW: GRADE I DIASTOLIC DYSFUNCTION. COMMENTS: 1. NORMAL LEFT VENTRICULAR SYSTOLIC FUNCTION. LEFT VENTRICULAR EJECTION FRACTION 60-65%. NORMAL WALL MOTION. 2. GRADE I DIASTOLIC DYSFUNCTION. 3. NORMAL FILLING PRESSURE. TECHNOLOGIST: REGGIE COOK
--- NOTE | 2024-01-24 16:02 | CON ---
Date of Consultation: 01/24/2024 Reason For Consultation: Elevated BUN and creatinine, fluid management. History Of Present Illness: This is a pleasant -yfyn-hhv gentleman, poor historian with si gnificant past medical history of hypertension, CAD, status post WI, atrial fibrillation, hypothyroid ism, questionable diabetes. The patient denied, history of chronic kidney disease. The patient came to the hospital with atrial fibrillation and RVR, found to have elevation in BUN and creatinine. Fo r that reason, we have been consulted. Creatinine upon arrival is 2.7, currently 2.2. Reviewing the record back in 2019, creatinine 1 with GFR of 73. The patient apparently being on no nonsteroid. D enied taking any nonsteroidal or any ARB or MICAELA inhibitor. Upon arrival to the hospital, blood press ure was on the lower side. The patient's RVR are currently rate controlled, feeling better on IV flu id. Kidney function improving. Past Medical History: Include: 1.CAD, status post PCI, status post WI. 2.DVT. 3.Hypertension. 4.Chronic kidney disease. 5.COPD. Past Surgical History: Include: 1.Spinal surgery. 2.Appendectomy. Home Medications: Include nortriptyline, aspirin, atorvastatin, Plavix, isosorbide, metoprolol, nitr oglycerin. Allergies: NO KNOWN DRUGS ALLERGY. Social History: Ex-smoker. Denied alcohol. Occasional drug use. Review of Systems: Head and Neck: No red eye. No ear pain. GI: No nausea, no vomiting. : No polyuria, no dysuria, no hematuria. QUARRY BOSS: Not applicable. Respiratory: No chest pain. No shortness of breath. Cardiovascular: Has chest pain. Has tachycardia. Endocrine: No polydipsia. Skin: No rash. Neuro: Has neuropathy. Musculoskeletal: Generalized fatigue. Physical Examination: Vital Signs: When I saw the patient, blood pressure 131/65, pulse of 79, afebrile. Chest: Clear to auscultation. Heart: S1, S2. Regular. Abdomen: Soft, nontender. Extremity: No edema. Neuro: Alert. No focality. Laboratory Data: WBC 7.1, hemoglobin 11.9. Sodium 138, potassium 5, bicarb 20, BUN 34, creatinine 2 .7, calcium 10.2. Latest lab data; sodium 141, potassium 4.4, bicarb 22, BUN 38, creatinine 2.2. GF R of 30, calcium 9.3. Urinalysis negative for infection. Renal ultrasound show normal size kidney 9.5/9.3. A 20 mm mass on the urine bladder, questionable of malignancy. Current Medications: The patient on include Tylenol, Plavix, pantoprazole, IV fluid. Assessment And Plan: 1.Acute kidney injury secondary to cardiorenal prerenal secondary to atrial fibrillation, still on t he dry side. I am going to continue IV hydration and we will monitor. We will follow up with Cardio logy. 2.We will send for workup to evaluate the chronicity of the disease and I will follow up the patient closely. 3.With the presence of anemia to rule out any light chain disease, I am going to go ahead and send f or serum protein, electrophoresis. 4.I going to continue hydration. 5.Hypertension, controlled, optimal. Please avoid any MICAELA inhibitor or ARB for the time being. 6.Hyperkalemia resolved. 7.Bladder mass. The patient will need CT. We will consider CT with contrast after improving the ki dney function. The patient also going to need follow up with Urology for cystoscopy. 8.Atrial fibrillation as by Cardiology. Thank you, Dr. Stout, for allowing us to participate in the care of your patient. BLAZE Voice ID: [id number] Report ID: [id number]
[2024-01-24] MEDS: ATORVASTATIN 80 MG TAB PO SCH (21:13)
[2024-01-25 05:17] LABS: Absolute Lymphocytes (CBC) 2.3 K/uL (0.7-4.9); Absolute Monocytes 0.9 K/uL (0.1-1.3); Absolute Neutrophil 7.6 K/uL (1.8-8.0); Basophils % 0.4 % (0-1.3); Eosinophils % 0.2 % (0-4.4); Hematocrit 33.4 % (39.6-49.0); Hemoglobin 10.9 g/dL (13.6-17.9); Lymphocytes % 20.8 % (15.3-44.8); MCHC 32.8 g/dL (32.0-36.0); MCV 88.4 fL (80-100); MPV 8.9 fL (7.6-11.3); Monocytes % 8.1 % (3.3-12.3); Neutrophils % 70.5 % (41.7-73.7); Platelets 221 thou/uL (152-406); RBC Red Blood Cell Count 3.78 M/uL (4.33-5.43); Red Cell Distribution Width 16.5 % (12.1-15.2)
[2024-01-25 05:33] LABS: Uric Acid 6.5 mg/dL (3.5-7.2)
[2024-01-25 05:34] LABS: Thyroid Stimulating Hormone 11.1 uIU/mL (0.358-3.740)
[2024-01-25] MEDS: PANTOPRAZOLE 40MG TABLET PO SCH (06:07)
--- NOTE | 2024-01-25 08:41 | P.PN ---
Date of Service: 01/25/24 Subjective: remains in sinus rhythm Denies chest pain feels close to his normal self voiding without issues denies any new / worsening problems ROS: 10 point ROS as noted above, otherwise negative Physical Exam: GEN: Alert, thin CV: Regular rate and rhythm, systolic murmur Pulm: Nonlabored respirations on room air, slight diminished at bases bilaterally ABD: soft, nontender, nondistended Neuro: Normal speech, normal affect Problem List: A-fib with RVR, new onset REMBERTO on CKD Severe left-sided Hydronephrosis, chronic Bladder Mass hx provoked DVT/PE (2015) s/p IVC filter Polysubstance abuse Hx Hypothyroidism NIDDM2 Hypertension Depression/Anxiety Severe protein calorie malnutrition hx CAD s/p PCI Hx PVD with prior right DONNA stent A-fib with RVR, new onset on admission, presents with elevated HR in 130-140s - Found to be in a-fib RVR; associated with shortness of breath, weakness, abdominal discomfort. Denies any prior diagnosis of a-fib/flutter s/p diltiazem drip and full dose lovenox in ED; converted back into sinus rhythm in ED. Cardiology consulted continue home metoprolol continue statin Start eliquis 01/24; Plavix dc'd 01/24 echo (01/23): 62% EF, grade 1 diastolic dysfunction, trace TR monitor on telemetry urine tox screen positive for amphetamines - which could lead to the tachyarrhythmia hypothyroidism, may need to increase synthroid if dose hasn't been titrated up in awhile REMBERTO on CKD Severe left-sided Hydronephrosis, chronic Bladder Mass creatinine 2.72 on admission. Unknown baseline. Has history of CKD per H&P. Creatinine 03/2023: 2.4, 09/2023: 2.0 renal u/s (01/23): severe left sided hydro. 20 mm mass in urinary bladder suspicious for malignancy prior CT @[facility] (10/22/23): severe left sided hydro with findings suggestive of chronic UPJ obstruction with cortical atrophy. Mild prostatomegaly. Infra-renal IVC filter in place was told to follow up with urologist at the time. Hasn't followed up with anyone since. prior renal u/s in 2019 noted 2 nonshadowing polypoid hypoechoic lesions between 6 and 10 mm. concerning for Urothelial neoplasm vs polypoid debris Dr. Denton, urology consulted hydronephrosis stable from 10/2023 to 01/2024, with seemingly stable renal function Nephrology consulted continue to monitor renal function DC IV fluids Monitor and replete electrolytes as needed creatinine improving hx provoked DVT/PE (2016) s/p IVC filter has history of provoked LLL PE and DVT of right brachial vein and superficial venous thrombus of cephalic veins after cervical spine surgery done 04/09/2015. s/p IVC filter placement "d/t unable to tolerate AC in past" per OSH ~5 days after surgery patient developed post-op neck hematoma near surgical site resulting in trachael deviation requiring intubation and hematoma evacuation. Has not been on any anticoagulation since IVC filter placement Patient denies any other bleeding complications Start eliquis 01/24. Plavix dc'd 01/24 Monitor for any active bleeding Polysubstance abuse tox screen positive for amphetamines/THC cessation advised Hx Hypothyroidism confirm home meds TSH significantly elevated 27.7; repeat 11.1 Free T4: 0.86 / Free T3: 2.19 NIDDM2 accu-cheks, SSI PRN glucagon Hypertension Depression/Anxiety confirm home meds, restart as appropriate hx CAD s/p PCI Hx PVD with prior right DONNA stent resume home statin, metoprolol plavix dc'd 01/24 VTE: start eliquis 01/24 Code: Full Dispo: Home, ~1 day Pending cardiac, urology recs Time Spent Managing Pts Care (In Minutes): 45
--- NOTE | 2024-01-25 16:19 | P.CNS ---
Date of Consult: 01/25/24 Reason for Consult: Left hydronephrosis Requesting Physician: Marcos Bermudez Chief Complaint: rapid afib History of Present Illness: 73-year-old gentleman with hypertension, CAD post AMI on ASA plus Plavix and isosorbide mononitrate, hypothyroidism, CKD, history of DVT, COPD who was admitted for A-fib with RVR and found to have prerenal azotemia in the setting of underlying CKD. He has been medically managed since his admission for the A- fib and RVR on IV diltiazem and Lovenox. He acknowledges having gross hematuria intermittently over the last 2 months as well as the following LUTS: Weak stream/urgency/intermittency 3 Straining to Frequency/incomplete emptying 5 AUA symptom score 21/35, and he acknowledges a small amount of urge incontinence from time to time. He apparently was evaluated by his PCP, Dr. Ivania Silva (sp?) with an imaging study which sounds like a CT scan from [facility] 10/2023, which reportedly revealed hydronephrosis suspicious for "chronic UPJ obstruction". Records obtained by the hospitalist revealed a creatinine of 1.2 in 2022 and a baseline creatinine of 2.X since March of this year. 01/24/2024 renal ultrasound revealed severe left-sided hydronephrosis with an associated 20 mm bladder "mass". Past medical history: As above Past surgical history: Spinal surgery and appendectomy Family history: Denies urologic malignancy Social history: He is an active smoker of over 40 years on average 2 packs/day Examination: Alert, awake, oriented in no acute distress No dyspnea or sign of respiratory distress Ambulatory without requiring assistance Abdomen nontender 01/23/2024 INR 1.09 01/24/2024 creatinine 2.72, UA micro trace heme, <5 RBCs per hpf, <5 WBCs per hpf 01/25/2024 creatinine 2.06 with BUN 34, WBC 10.8, hemoglobin 10.9, hematocrit 33.4, platelets 221 Assessment and recommendation: 73-year-old gentleman with hypertension, CAD post AMI on ASA plus Plavix and isosorbide mononitrate, hypothyroidism, CKD, history of DVT, COPD who was admitted for A-fib with RVR with REMBERTO on CKD in the setting of significant obstructive LUTS, gross hematuria and a 2 cm "bladder mass" seen on ultrasound. -Given the timeframe for obstruction suspected at this point, approximately 3 months, the presence of the suspected bladder mass, his gross hematuria, and smoking history, the likelihood of a bladder tumor potentially obstructing the left ureteral orifice is high. While he is undergoing medical management of his A-fib with RVR and is being managed with anticoagulation, he would better be served allowing stability of his underlying cardiac dysfunction before we were to consider possible operative evaluation or intervention. To that end, I recommended the following: -Check bladder scan postvoid residual to ensure adequate emptying. If PVR > 350 to 400 cc, strong consideration should be given to placement of a catheter as the retained volume of urine could potentially contribute to reflux nephropathy and the left-sided hydronephrosis. -Flomax 0.4 mg daily recommended if okay with his internists and unlikely to aggravate his underlying cardiovascular state -Recommend follow-up within the next 3 weeks for cystoscopy -Meanwhile, send his voided urine for cytology to look for malignant cells -If no intravesical source of obstruction noted, will consider investigation operatively of his left upper tract. To that end, I requested his niece, who was present in the room part of the ev aluation, to request a CD of the CT scan performed at [facility] for my review when he comes in for follow-up cystoscopy. Meanwhile, my office will request a faxed copy of the report of the imaging. Allergies No Known Allergies Allergy (Unverified 09/23/19 11:16) Home medications list reviewed: Yes Home Medications: Nortriptyline HCl [Pamelor] 50 mg PO BEDTIME 09/23/19 Aspirin Chewable [Aspirin Chewable*] 81 mg PO DAILY #90 tab.chew 09/26/19 Atorvastatin Calcium [Lipitor] 80 mg PO BEDTIME #30 tab 09/26/19 Chlorhexidine Gluconate 12 % PO TID 09/26/19 Clopidogrel Bisulfate [Plavix*] 75 mg PO DAILY #30 tablet 09/26/19 Isosorbide Mononitrate [Isosorbide Mononitrate ER] 120 mg PO DAILY 09/26/19 Metoprolol Succinate [Toprol Xl] 25 mg PO DAILY 09/26/19 Nitroglycerin [Nitrostat*] 0.4 mg SL SEECOM #30 tab 09/26/19 - Past Medical/Surgical History Diabetic: No -: HTN -: Blood clots -: DVT -: CAD -: Appendectomy -: spinal Sx. -: cardiac stents - Family History Father Medical History: Stroke Mother Medical History: Diabetes, Cancer - Social History Smoking Status: Current every day smoker Alcohol use: No CD- Drugs: Yes Caffeine use: Yes Place of Residence: Home Physical Examination Temp Pulse Resp BP Pulse Ox 97.8 F 65 14 163/72 H 99 01/25/24 12:00 01/25/24 12:00 01/25/24 12:00 01/25/24 12:00 01/25/24 12:00 - Problems (1) Gross hematuria Current Visit: Yes Status: Acute (2) Lower urinary tract symptoms (LUTS) Current Visit: Yes Status: Acute (3) Bladder mass Current Visit: Yes Status: Acute (4) Hydronephrosis, left Current Visit: Yes Status: Acute (5) Smoking greater than 40 pack years Current Visit: Yes Status: Acute (6) Rapid atrial fibrillation Current Visit: Yes Status: Acute Conclusions/Impression: see A&P in [facility] Critical Care: No Time Spent Managing Pts care (In Minutes): 45
[2024-01-25] MEDS: APIXABAN 5 MG TABLET PO SCH (21:07)
[2024-01-25] MEDS: TRAMADOL HCL 50 MG TAB PO PRN (21:08)
[2024-01-25] MEDS: HYDROMORPHONE HCL 1 MG/ML INJ IV ONE (22:58)
[2024-01-25 23:55] LABS: Urine Protein/Creatinine Ratio 0.22 ratio (<0.15)
[2024-01-26] MEDS: HYDROMORPHONE HCL 1 MG/ML INJ IV PRN (05:23)
[2024-01-26 07:14] LABS: Anion Gap 8.1 mEq/L (5.0-15.0); Magnesium 1.8 mg/dL (1.6-2.4); Potassium 4.1 mEq/L (3.5-5.1)
--- NOTE | 2024-01-26 08:29 | PN ---
Date of Progress Note: 01/25/2024 Chief Complaint: Acute kidney injury, elevated BUN and creatinine. Subjective: The patient has multiple medical problems including history of hypertension, coronary ar jean pierre disease, status post SD, atrial fibrillation, hypothyroidism, chronic kidney disease stage 2. H e denies history of chronic kidney disease. The patient came to the hospital because of generalized weakness. He was found to have atrial fibrillation with rapid ventricular response. He denies chest pain. On arrival to the hospital, creatinine level was 2.7 and it was improved to 2.2 following day . The patient's previous history showed GFR of 73 and creatinine 1 and when records were reviewed 2019, the patient is not taking any nonsteroidal anti-inflammatory medication. He denies angioten sin receptor lien or MICAELA inhibitor therapy. Upon arrival to the hospital, blood pressure was in l ow range. The patient had rapid ventricular response and atrial fibrillation. He received IV fluids and medication for rate control. Kidney function is gradually improving. The patient has nonoligur ic urine output. Review of Systems: Denies chest pain, palpitation. Denies fever, chills. Denies dysuria, hematuria, difficulty voiding . Impression And Plan: 1.Acute kidney injury secondary to cardiorenal syndrome, prerenal azotemia in setting of atrial fibr illation, hypotensive episode due to atrial fibrillation with rapid ventricular response. Continue I V hydration to prevent renal hypoperfusion. Cardiology is consulted for arrhythmia. The patient had workup initiated for chronic and acute kidney disease. Continue to monitor urine output and fluid b alance. 2.Hypertension. Avoid MICAELA inhibitor and angiotensin receptor lien due to hypotensive episodes an d acute kidney injury. 3.Hyperkalemia due to acute kidney injury, resolved. 4.Bladder mass. The patient had CT scan done. Urology consultation. Cystoscopy is appreciated. 5.Atrial fibrillation per Cardiology. 6.History of multiple medical problems. Check CK level to rule out rhabdomyolysis. Check urinalysi s to evaluate for possible active urinary sediment and screen for possible nephritis. EB/MODL Voice ID: [id number] Report ID: [id number]
[2024-01-26 08:30] VITALS: BP 141/64; TEMP 97.6
--- NOTE | 2024-01-26 08:59 | P.DS ---
Admission Date: 01/24/24 Discharge Date: 01/26/24 Disposition: ROUTINE DISCHARGE Discharge Condition: GOOD Reason for Admission: rapid afib Consultations: Cardiology - Dr. Han Nephrology - Dr. Cerda, Dr. Louis-Balbina Urology - Dr. Denton Brief History of Present Illness: 79yo M, PMH: coronary disease status post CT and PCI. He also has a history of chronic kidney disease, atrial fibrillation, type 2 diabetes mellitus, hypothyroidism and depression and anxiety. He is brought in via EMS. Patient states that his home care nurse became concerned and called the EMS. Symptomatically, he is reporting abdominal discomfort. Patient is a poor historian. Was found to be in rapid A-fib in the ER with ventricular rate of 146. Received diltiazem infusion and full dose Lovenox. Hospital Course: Problem List: A-fib with RVR, new onset REMBERTO on CKD Severe left-sided Hydronephrosis, chronic Bladder Mass hx provoked DVT/PE (2016) s/p IVC filter Polysubstance abuse Hx Hypothyroidism NIDDM2 Hypertension Depression/Anxiety Severe protein calorie malnutrition hx CAD s/p PCI Hx PVD with prior right DONNA stent Physician discharge instructions: Patient presented with elevated heart rate 130-140s associated with shortness of breath, weakness secondary to new onset a-fib with RVR. Chest xray was negative for any acute findings, noted old granulomatous disease. Echocardiogram noted 62%EF with grade 1 diastolic dysfunction and trace tricuspid regurgitation. Cardiology was consulted. Patient was started on cardizem drip in ED and converted back into sinus rhythm within a few hours. Unclear on exact etiology which led to new a-fib. His tox screen was noted to be positive for amphetamines which could've led to / provoked the tachyarrhythmia. Patient was started on eliquis 01/24 and plavix discontinued per cardiac recommendations. Cardiology recommended to continue home metoprolol. No further rate control / anti-arrhythmic at this time since he converted back to sinus quickly and has remained in sinus only on metoprolol. Recommend following up with cardiology in near future for further management. He was also noted to have an REMBERTO with serum creatinine of 2.72 on admission which was felt to be secondary to dehydration/hypovolemia. He had improvement and resolution with IV fluids. IV fluids were discontinued on 01/24 and he was monitored with further improvement the following day, Creatinine 1.85 on day of discharge. Renal ultrasound noted severe left-sided hydro, 20 mm mass in urinary bladder suspicious for malignancy. On further review of chart, patient was noted to have similar findings in CT abdomen without contrast done 10/22/23 at [facility] - reported "severe left sided hydro with findings suggestive of chronic UPJ obstruction with cortical atrophy. Mild prostatomegaly" Hydronephrosis seems to be stable from 10/2023 to 01/2024 with relatively stable renal function. He was previously told to follow up with urologist at the time however reports not being able to follow up with anyone since then. He reports several months to ~1 year of lower urinary tract symptoms - nocturia, hesitancy, interrupted stream. Had some hematuria in the last few months. Significant smoking history. Creatinine was closer to 1.0 a year ago. Given these symptoms, radiographic findings, and renal function, Urology (Dr. Denton) was consulted. Urine was sent off for cytology to evaluate for any malignant cells - will need to follow up with PCP or Dr. Denton since this will result after discharge. Dr. Denton recommended follow up in his office within the next 3 weeks for cystoscopy / further evaluation. Symptoms, Imaging, and smoking history/risk factors are concerning for malign alessia, and recommend close follow up. Medications: Stop Plavix - > Start Eliquis Continue other home medications not listed as previously prescribed. Follow up: PCP 3-5 days Cardiology 2-4 weeks Urology within 3 weeks Please call to schedule / confirm appointments Physical Exam: GEN: Alert, thin CV: Regular rate and rhythm, systolic murmur Pulm: Nonlabored respirations on room air, slight diminished at bases bilaterally ABD: soft, nontender, nondistended Neuro: Normal speech, normal affect Vital Signs/Physical Exam: Temp Pulse Resp BP Pulse Ox 97.6 F 50 16 141/64 H 92 01/26/24 08:00 01/26/24 08:53 01/26/24 08:00 01/26/24 08:00 01/26/24 08:00 Laboratory Data at Discharge: WBC 10.80 thou/uL (4.3-10.9) 01/25/24 04:58 Hgb 10.9 g/dL (13.6-17.9) L D 01/25/24 04:58 Hct 33.4 % (39.6-49.0) L 01/25/24 04:58 Plt Count 221 thou/uL (152-406) 01/25/24 04:58 PT 12.2 SECONDS (9.4-12.5) 01/23/24 22:22 INR 1.09 01/23/24 22:22 Sodium 138 mEq/L (136-145) 01/26/24 06:42 Potassium 4.1 mEq/L (3.5-5.1) 01/26/24 06:42 BUN 35 mg/dL (7-18) H 01/26/24 06:42 Creatinine 1.85 mg/dL (0.70-1.30) H 01/26/24 06:42 Glucose 113 mg/dL (74-106) H 01/26/24 06:42 Uric Acid 6.5 mg/dL (3.5-7.2) 01/25/24 04:58 Phosphorus 3.1 mg/dL (2.5-4.9) 01/24/24 05:29 Magnesium 1.8 mg/dL (1.6-2.4) 01/26/24 06:42 Total Bilirubin 0.4 mg/dL (0.2-1.0) 01/23/24 22:22 AST 36 U/L (15-37) 01/23/24 22:22 ALT 34 U/L (16-61) 01/23/24 22:22 Alkaline Phosphatase 117 U/L (45-117) 01/23/24 22:22 Triglycerides 67 mg/dL (<150) 01/25/24 04:58 Cholesterol 107 mg/dL (<200) 01/25/24 04:58 HDL Cholesterol 51 mg/dL (40-60) 01/25/24 04:58 Cholesterol/HDL Ratio 2.10 01/25/24 04:58 Home Medications: Nortriptyline HCl [Pamelor] 50 mg PO BEDTIME 09/23/19 Aspirin Chewable [Aspirin Chewable*] 81 mg PO DAILY #90 tab.chew 09/26/19 Atorvastatin Calcium [Lipitor] 80 mg PO BEDTIME #30 tab 09/26/19 Chlorhexidine Gluconate 12 % PO TID 09/26/19 Isosorbide Mononitrate [Isosorbide Mononitrate ER] 120 mg PO DAILY 09/26/19 Metoprolol Succinate [Toprol Xl*] 25 mg PO DAILY 09/26/19 Nitroglycerin [Nitrostat*] 0.4 mg SL SEECOM #30 tab 09/26/19 Apixaban [Eliquis] 5 mg PO BID 30 Days #60 tab 01/26/24 New Medications: Apixaban [Eliquis] 5 mg PO BID 30 Days #60 tab Physician Discharge Instructions: Physician discharge instructions: Patient presented with elevated heart rate 130-140s associated with shortness of breath, weakness secondary to new onset a-fib with RVR. Chest xray was negative for any acute findings, noted old granulomatous disease. Echocardiogram noted 62%EF with grade 1 diastolic dysfunction and trace tricuspid regurgitation. Cardiology was consulted. Patient was started on cardizem drip in ED and converted back into sinus rhythm within a few hours. Unclear on exact etiology which led to new a-fib. His tox screen was noted to be positive for amphetamines which could've led to / provoked the tachyarrhythmia. Patient was started on eliquis 01/24 and plavix discontinued per cardiac recommendations. Cardiology recommended to continue home metoprolol. No further rate control / anti-arrhythmic at this time since he converted back to sinus quickly and has remained in sinus only on metoprolol. Recommend following up with cardiology in near future for further management. He was also noted to have an REMBERTO with serum creatinine of 2.72 on admission which was felt to be secondary to dehydration/hypovolemia. He had improvement and resolution with IV fluids. IV fluids were discontinued on 01/24 and he was monitored with further improvement the following day, Creatinine 1.85 on day of discharge. Renal ultrasound noted severe left-sided hydro, 20 mm mass in urinary bladder suspicious for malignancy. On further review of chart, patient was noted to have similar findings in CT abdomen without contrast done 10/22/23 at [facility] - reported "severe left sided hydro with findings suggestive of chronic UPJ obstruction with cortical atrophy. Mild prostatomegaly" Hydronephrosis seems to be stable from 10/2023 to 01/2024 with relatively stable renal function. He was previously told to follow up with urologist at the time however reports not being able to follow up with anyone since then. He reports several months to ~1 year of lower urinary tract symptoms - nocturia, hesitancy, interrupted stream. Had some hematuria in the last few months. Significant smoking history. Creatinine was closer to 1.0 a year ago. Given these symptoms, radiographic findings, and renal function, Urology (Dr. Denton) was consulted. Urine was sent off for cytology to evaluate for any malignant cells - will need to follow up with PCP or Dr. Denton since this will result after discharge. Dr. Denton recommended follow up in his office within the next 3 weeks for cystoscopy / further evaluation. Symptoms, Imaging, and smoking history/risk factors are concerning for malignancy, and recommend close follow up. Medications: Stop Plavix - > Start Eliquis Continue other home medications not listed as previously prescribed. Follow up: PCP 3-5 days Cardiology 2-4 weeks Urology within 3 weeks Please call to schedule / confirm appointments Followup: Ivania Pugh MD [Primary Care Provider] - Time spent managing pt's care (in minutes): 45
== END 2024-01-26 11:18 | disposition home or self-care (01) | DRG 308 ==
LOC: ER 22:13 → 2ND 01-24 01:20
PROVIDERS: ADMIT Internal Medicine; ATTEND Hospitalist
DX: I48.91 Unspecified atrial fibrillation (principal); E43 Unspecified severe protein-calorie malnutrition; J44.1 Chronic obstructive pulmonary disease with (acute) exacerbation; R64 Cachexia; N17.9 Acute kidney failure, unspecified; N13.0 Hydronephrosis with ureteropelvic junction obstruction; F15.10 Other stimulant abuse, uncomplicated; F12.10 Cannabis abuse, uncomplicated; Z79.01 Long term (current) use of anticoagulants; I25.10 Atherosclerotic heart disease of native coronary artery without angina pectoris; I25.2 Old myocardial infarction; Z98.61 Coronary angioplasty status; I10 Essential (primary) hypertension; Z87.891 Personal history of nicotine dependence; Z90.49 Acquired absence of other specified parts of digestive tract; E11.22 Type 2 diabetes mellitus with diabetic chronic kidney disease; I12.9 Hypertensive chronic kidney disease with stage 1 through stage 4 chronic kidney disease, or unspecified chronic kidney disease; N18.9 Chronic kidney disease, unspecified; Z79.4 Long term (current) use of insulin; E03.9 Hypothyroidism, unspecified; F41.8 Other specified anxiety disorders; Z86.718 Personal history of other venous thrombosis and embolism; Z86.711 Personal history of pulmonary embolism; Z68.20 Body mass index [BMI] 20.0-20.9, adult; N32.89 Other specified disorders of bladder; D64.9 Anemia, unspecified; E87.5 Hyperkalemia; R31.0 Gross hematuria; E86.0 Dehydration
CPT/HCPCS: 36415; 36600; 71045; 76770; 80048; 80061; 80076; 80307; 81001; 82077; 82550; 82570; 82805; 82947; 83735; 83880; 83970; 84100; 84156; 84165; 84439; 84443; 84481; 84484; 84550; 85025; 85610; 86021; 86334; 93005; 93306; 96361; 96372; 96374; 96375; 99285; J1171; J1650; J2405; J2470; J2919; J7030